=== PATIENT | male | born 1955 | race Caucasian/White ===

== ENCOUNTER 2018-10-22 16:28 | Emergency (ER) | payer OTHER ==
[2018-10-22] MEDS ORDERED: Metoprolol Tartrate 5 MG/5 ML VIAL ONE (17:03)
[2018-10-22] MEDS ORDERED: Carvedilol 3.125 MG TAB PO SCH (18:15)
== END 2018-10-22 18:39 | disposition home or self-care (01) ==
LOC: ERS 16:28
DX: I48.91 Unspecified atrial fibrillation (principal); F17.210 Nicotine dependence, cigarettes, uncomplicated
CPT/HCPCS: 93005; 96374

== ENCOUNTER 2018-10-24 04:58 | Inpatient (IN) | payer OTHER ==
[2018-10-24] MEDS ORDERED: Diltiazem 125 MG/25 ML ONE (05:08)
[2018-10-24 05:40] LABS: #Basophils 0.1 thou/uL (0.0-0.2); #Eosinphils 0.4 thou/uL (0.0-0.7); #Lymphocytes 2.1 thou/uL (1.20-3.40); #Monocytes 0.7 thou/uL (0.11-0.59); #Neutrophils 6.9 thou/uL (1.40-6.50); %Basophils 0.5 % (0.0-1.0); %Eosinophils 3.5 % (0.0-10.0); %Monocytes 6.9 % (0.0-10.0); %Neutrophils 68.1 % (42.0-75.0); Hemoglobin 13.4 g/dL (14.0-18.0); Mean Corpuscular Hemoglobin 34.9 pg (27.0-31.0); Mean Corpuscular Volume 96.9 fL (78.0-98.0); Mean Platelet Volume 6.8 fL (7.4-10.4); Platelet Count 309 thou/uL (130-400); RBC Distribution Width 12.2 % (11.5-14.5); Red Blood Cell (RBC) Count 3.84 mill/uL (4.70-6.10); White Blood Cell (WBC) Count 10.1 thou/uL (4.8-10.8)
[2018-10-24 05:59] LABS: ALT (SGPT) 14 U/L (8-55); AST (SGOT) 24 U/L (5-34); Albumin 4.5 g/dL (3.4-4.8); Alkaline Phosphatase 94 U/L (40-150); Anion Gap 15 mmol/L (10-20); BUN (Urea Nitrogen) 17 mg/dL (8.4-25.7); Bilirubin, Total 1.2 mg/dL (0.2-1.2); Calc. Creatinine Clearance 0 mL/min (70-130); Calcium 10.1 mg/dL (7.8-10.44); Carbon Dioxide 21 mmol/L (23-31); Chloride 94 mmol/L (98-107); Estimated GFR-MDRD 45; Globulin 3.2 g/dL (2.4-3.5); Glucose 113 mg/dL (80-115); Potassium 4.5 mmol/L (3.5-5.1); Protein, Total 7.7 g/dL (5.8-8.1); Sodium 125 mmol/L (136-145)
--- NOTE | 2018-10-24 08:18 | RAD ---
SINGLE VIEW OF THE CHEST: COMPARISON: 10/22/2018. HISTORY: Dyspnea. FINDINGS: A single view of the chest shows a normal-size cardiomediastinal silhouette. There may be a small le ft pleural effusion. No consolidation is seen. There are bilateral rib fractures which appear remot e. IMPRESSION: Small left pleural effusion. POS: CET
[2018-10-24 09:13] LABS: Troponin I Less than 0.010 ng/mL (< 0.028)
[2018-10-24] MEDS ORDERED: Digoxin 0.5 MG/2 ML AMP SLOW IVP SCH ×3 (09:30→17:45)
[2018-10-24] MEDS ORDERED: Acetaminophen 325 MG TAB PO PRN (09:30)
[2018-10-24] MEDS ORDERED: hydrALAZINE 20 MG/ML VIAL SLOW IVP PRN (09:30)
[2018-10-24] MEDS: Sodium Chloride 0.9% 1,000 ML IV SCH (10:20)
[2018-10-24 12:02] LABS: Troponin I 0.026 ng/mL (< 0.028)
--- NOTE | 2018-10-24 14:59 | HP ---
The patient says he is currently in between doctors. He was seeing Dr. Woodson in [place], but says a lady doctor took over. CHIEF COMPLAINT: "My breathing." HISTORY OF PRESENT ILLNESS: Mr. Evans is a pleasant 63-year-old gentleman, who says he has a diagnosis of ALS, which was diagnosed about 10 years ago in [place]. He had been living in a nursing facility, but he says he checked himself out of there. He apparently had been there convalescing from endocarditis, which had been diagnosed a few years back. He says that he had been doing okay at home. He says he lives solo and free at home and says that he has noticed in the last few months that he has been getting more and more short of breath. He notes it mainly when he is trying to do things. He gets around in his home with a wheelchair and has noticed it with this. He also notes that his heart has been racing and he has been having palpitations. He says it occurs constantly. He says it has been over the last 6 months and during this time, he also feels like there is pressure on his chest like somebody is sitting on him. He also notes that he feels dizzy and lightheaded during this time and as a result, he came to the ER for evaluation. While in the ER, he was found to be in atrial fibrillation with rapid ventricular response. He was given a dose of Cardizem as well as placed on a Cardizem drip. His heart rate did drop as well as his blood pressure in the ER and he is being admitted for further evaluation. The patient is not the best historian and his ideas are somewhat all over the place, but from what I can gather, his main symptoms are the shortness of breath and palpitations as well as chest pain. He does not really complain of any other symptoms. REVIEW OF SYSTEMS: CONSTITUTIONAL: There has been no mention of any fevers, chills, or night sweats. No weight loss. HEENT: He denies any headache, but he has had some feeling dizzy and lightheaded typically when he gets the shortness of breath. There has been no mention of any sore throat or rhinorrhea. NECK: No neck pain. No adenopathy. PULMONARY: He complains of occasional cough. There is no wheezing. No hemoptysis. CARDIOVASCULAR: As the history of present illness. GASTROINTESTINAL: He denies any abdominal pain. No nausea. No vomiting. No change in bowels. GENITOURINARY: He says he has no difficulty urinating. No polyuria. No dysuria. No hematuria. MUSCULOSKELETAL: No mention of any muscle pains, weakness, or joint pains. NEUROLOGIC: No focal weakness or numbness. No seizures. However, he says he has been diagnosed with ALS and says he knows his legs are not always going to be "with him" and he does get around with a wheelchair. PSYCHIATRIC: No symptoms of anxiety or depression. PAST MEDICAL HISTORY: ALS diagnosed in [facility] about 10 years ago. He does not really know much of the details of that. He also has a history of endocarditis. PAST SURGICAL HISTORY: He has had surgery on his right arm and his neck and this was following a wheelchair accident. ALLERGIES: TO IODINE. SOCIAL HISTORY: He lives at home alone. He gets around with a wheelchair. He has a daughter, Aruna, who is his medical power of analytics architect and it is mentioned that he does have a history of tobacco abuse as well as he drinks alcohol. He does not want to be resuscitated. He is a DNR. FAMILY HISTORY: No history of any heritable diseases. CURRENT MEDICATIONS: 1. Carvedilol 3.125 mg twice daily. 2. Multivitamin once a day. 3. Losartan/hydrochlorothiazide 50/12.5 once daily. 4. Loperamide 2 mg daily. 5. Doxycycline 100 mg twice a day. 6. Bupropion 150 mg extended release daily. 7. Aspirin 81 mg a day. PHYSICAL EXAMINATION: GENERAL: He is alert and oriented. He is in no acute distress. He is a bit disheveled in appearance and he does tend to get agitated easily. VITAL SIGNS: Blood pressure was 164/118, heart rate is averaging 110 to 120, respiratory rate is 20, and he is afebrile. HEENT: Pupils are equal, round, and reactive to light. Extraocular muscles are intact. His sclerae are anicteric. Throat, there is no erythema. He does have very poor dentition. NECK: There are no adenopathies. There are no bruits. LUNGS: Clear to auscultation. There are no wheezing, no rales, no rhonchi. CARDIOVASCULAR: The rhythm is irregular. There was no evidence of any murmur. S1 and S2 are normal. There are no clicks, no rubs. ABDOMEN: Soft. It is nontender and nondistended. Positive for bowel sounds. There is no rebound. No guarding. No organomegaly. EXTREMITIES: He does have some atrophy in his calf muscles, but there is no edema. There are no joint effusions. NEUROLOGIC: His cranial nerves are intact. His muscle strength was 5/5 in both his upper and lower extremities. SKIN AND INTEGUMENT: He had some excoriations on his feet, but otherwise no other skin lesions. LAB RESULTS: The white blood cell count is 10.1, hemoglobin 13.4, hematocrit is 37.2, and platelet count is 309. Sodium 125, potassium 4.5, chloride is 94, CO2 is 21, BUN of 17, creatinine 1.55, and glucose is 113. TSH was 3.15. IMAGING DATA: He had a chest x-ray, which by my reading, there is no evidence of any cardiomegaly. He had some blunting of the left costophrenic angle, possibly suggesting a pleural effusion and it looked like there was some fullness in the right base as well and then possible infiltrate. EKG showed atrial fib as well as atrial flutter with heart rates in the 130s. There was no ST wave changes. This is also by my reading. ASSESSMENT AND PLAN: 1. Acute respiratory failure. This is likely as a result of the atrial fibrillation with rapid ventricular response. For this, we will go ahead and admit him to the telemetry since he had a fairly abrupt reaction to Cardizem. We will go ahead and give him a dose of IV digoxin and monitor his rate. Right now, he seems to be tolerating the faster heart rates at this time. We will go ahead and consult Cardiology for further recommendations as well as get an echo cardiogram. 2. The patient has hyponatremia. This appears to be relatively chronic. I suspect it could be due to volume depletion. We will go ahead and place him on a normal saline and we will also get urine and serum osmolalities as well as a urine sodium to help us distinguish the type of hyponatremia he has. 3. Acute versus chronic kidney disease. We will need to monitor the trend and see if he responds to hydration. 4. Possible urinary retention. If he in fact does have amyotrophic lateral sclerosis, it could be related to this. He has been bladder scanned and found to have an 800 mL of urine. We would like to place a Gerard catheter at least in and out catheterization. Right now, he is a bit agitated and has been refusing this even after the nurse as well as myself tried to convince him of this, telling him the risk of renal failure, not really sure if he completely comprehend the risks. We will continue to try to convince him to do this through the hospital stay. Hopefully, once he is more settled in, he will allow us to place a catheter. Otherwise, the patient will be placed on gastrointestinal prophylaxis. He will likely need Lovenox as well. However, given his risk for falls and his relative noncompliance, I will go ahead and hold off on this until he is evaluated by Cardiology. Job ID: [id number]
--- NOTE | 2018-10-24 15:01 | PDOC.PALCO ---
Palliative Care Consult - Consult Details Requesting Physician: Dr Hitchcock Reason for Consult: advance directives assistance, coping issues Family Members Present: None - Pertinent HPI 63 year old male who presented to the emergency department with shortness of breath after calling EMS. EMS assessed Mr Evans , administered duobeb x2 and transported to the emergency room. Patient had was also seen in the Emergency room two days prior for shortness of breath. Secondary to hyponatremia , atrial fib with RVR patient is admitted for further evaluation, consult to Palliative Care by Dr Hitchcock for assistance with advance directives and coping issues. - Pertinent PMH ALS, Chronic Alcohol abuse, Hypertension, Endocarditis, Heart Failure, COPD - Social History Smoking Status: Current every day smoker Smoking: cigarettes Alcohol Use: daily Drug Use History: none - Medications MAR Reviewed: Yes - Allergies Allergies/Adverse Reactions: Allergies Allergy/AdvReac Type Severity Reaction Status Date / Time iodine Allergy Verified 10/24/18 09:00 - Subjective Poor hygiene, emaciated, chronically ill appearing. Push of speech with conversation. States if we would find out the previous medication he was on for his heart "he would be better". Discussed heart disease and ALS. Patient consistently refocused conversation back to his medication that he was on. No recall of previous medication, no recall of who prescribed just that it was cardiology. ROS: Pain, non specific, shortness of breath, cough, "tired". Review of all other systems negative at this time. - Objective Vital Signs: Vital Signs - Most Recent Temp Pulse Resp BP Pulse Ox 97.7 F 109 H 20 142/96 H 100 10/24/18 11:22 10/24/18 11:22 10/24/18 11:22 10/24/18 11:22 10/24/18 11:22 Palliative Performance Scale: 40 - Physical Exam Deviation from normal: aggitated, HEENT: moist MMs, EOMI Deviation from normal: labored respirations, mild difuse wheezing more pronounced on expiration Cardiovascular: irregular Gastrointestinal: positive bowel sounds Musculoskeletal: no edema Neurological: normal sensation Deviation from normal: aggitated Deviation from normal: Fair turgor, brusing in various stages of healing. Thin fragile skin - Problem List (1) Palliative care encounter Code(s): Z51.5 - ENCOUNTER FOR PALLIATIVE CARE Current Visit: Yes Status: Acute (2) ALS (amyotrophic lateral sclerosis) Code(s): G12.21 - AMYOTROPHIC LATERAL SCLEROSIS Current Visit: No Status: Chronic (3) Chronic alcoholism Code(s): F10.20 - ALCOHOL DEPENDENCE, UNCOMPLICATED Current Visit: No Status : Chronic (4) Tobacco use Code(s): Z72.0 - TOBACCO USE Current Visit: No Status: Chronic - Plan/Recommendations Plan:* Ben did sign his DNAR but signature illegible. Confirmed with patient that he wants no resuscitative measures. Did not want to discuss MPOA. Extensive therapeutic listening during patient encounter, communicated with Scottie patient RN. *Follow up on MPOA *Continue discussion to identify if there are other coping strategies that patient would be willing to use to lessen the alcohol consumption. *Continue to educate patient that secondary to disease progression he will not have heart function as he did years ago [60] minutes spent on this encounter with >50% of the time in counseling and coordination of care. Thank you for this very appropriate consult.
[2018-10-24] MEDS ORDERED: Carvedilol 3.125 MG TAB PO SCH (21:00)
[2018-10-24] MEDS: Famotidine 20 MG TAB PO SCH (21:46)
--- NOTE | 2018-10-25 00:12 | CON ---
DATE OF CONSULTATION: HISTORY OF PRESENT ILLNESS: Jose Evans is a pleasant 63-year-old white male, who has been seen and evaluated by Dr. Whitaker in the past. Ten years ago, he was diagnosed with amyotrophic lateral sclerosis. 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 He was discharged to be treated with IV vancomycin and then readmitted 1 month later with increasing dyspnea. It was felt that he had acute-on- chronic systolic and diastolic heart failure. It is of note that on discharge from that admission that he was on digoxin 0.125 daily, and furosemide 20 mg daily, which he is no longer taking. He states that his current doctor felt he did not need that. He is now admitted with increased shortness of breath. He denies any leg edema. He also complains of tightness in his chest and at times can feel his heart beating very rapidly. In the emergency room, he was given intravenous Cardizem and placed on Cardizem drip. 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 PAST SURGICAL HISTORY: Right arm and neck surgery. MEDICATIONS: 1. Carvedilol 3.125 b.i.d. 2. Multivitamin 1 daily. 3. Losartan/hydrochlorothiazide 50/12.5 daily. 4. Loperamide 2 mg daily. 5. Doxycycline 100 mg b.i.d. 6. Aspirin 81 daily. 7. Bupropion 150 mg daily. ALLERGIES: IODINE. SOCIAL HISTORY: He continues to smoke. He wished to be a DNR. He does drink. PHYSICAL EXAMINATION: VITAL SIGNS: Blood pressure 152/110, pulse of 110. HEENT: PERRL. NECK: Supple. CHEST: Clear. CARDIAC: S1 and S2 normal without any S3, S4 or murmurs. ABDOMEN: Normal bowel sounds without tenderness. EXTREMITIES: Revealed no clubbing, cyanosis, or edema. NEUROLOGICAL: Grossly intact. The patient has rapid repetitive eye movements and generalized weakness. IMAGING: EKG reveals atrial fibrillation with rapid ventricular response at 124 per minute with incomplete right bundle-branch block. Nonspecific ST-T wave changes. LABORATORY DATA: Sodium 125, potassium 4.5, chloride 94, carbon dioxide 21, BUN 17, creatinine 1.55. TSH is normal. Troponin I is normal x4. Hemoglobin 13.4, hematocrit 37.2, white count 56034, and platelets 309,000. D-dimer less than 0.27. Alcohol less than 10. IMPRESSION: 1. Atrial fibrillation with rapid ventricular response. He was on digoxin previously for rate control. However, this has been stopped. Thus far, he has received 2 doses of digoxin 0.25 intravenously. 2. Elevated hypertension. 3. History of methicillin-resistant Staphylococcus aureus mitral valve endocarditis in February 2017. 4. Smoker. 5. Alcohol use. 6. Renal insufficiency. 7. Hyponatremia. 8. Urinary retention. PLAN: Due to his risk of falls, he is a poor candidate for anticoagulation. Another digoxin 0.25 IV will be given and he will be started on 0.125 q.a.m. Echocardiogram will be repeated. Dr. Whitaker will see the patient in the morning. Job ID: [id number]
[2018-10-25] MEDS: Sodium Chloride 0.9% 1,000 ML IV SCH ×2 (00:30→17:13)
[2018-10-25 05:43] LABS: #Eosinphils 0.1 thou/uL (0.0-0.7); #Lymphocytes 1.5 thou/uL (1.20-3.40); #Monocytes 0.7 thou/uL (0.11-0.59); #Neutrophils 6.3 thou/uL (1.40-6.50); %Basophils 0.1 % (0.0-1.0); %Eosinophils 1.4 % (0.0-10.0); %Lymphocytes 17.6 % (21.0-51.0); %Neutrophils 72.9 % (42.0-75.0); Hemoglobin 12.1 g/dL (14.0-18.0); Mean Corpuscular HGB CONC 34.2 g/dL (32.0-36.0); Mean Corpuscular Hemoglobin 33.9 pg (27.0-31.0); Mean Corpuscular Volume 99.2 fL (78.0-98.0); Mean Platelet Volume 6.4 fL (7.4-10.4); Platelet Count 248 thou/uL (130-400); RBC Distribution Width 12.3 % (11.5-14.5); Red Blood Cell (RBC) Count 3.57 mill/uL (4.70-6.10); White Blood Cell (WBC) Count 8.6 thou/uL (4.8-10.8)
[2018-10-25 06:02] LABS: Anion Gap 15 mmol/L (10-20); BUN (Urea Nitrogen) 16 mg/dL (8.4-25.7); Calc. Creatinine Clearance 50 mL/min (70-130); Calcium 9.7 mg/dL (7.8-10.44); Carbon Dioxide 21 mmol/L (23-31); Chloride 100 mmol/L (98-107); Estimated GFR-MDRD 54; Glucose 98 mg/dL (80-115); Potassium 4.6 mmol/L (3.5-5.1); Sodium 131 mmol/L (136-145)
--- NOTE | 2018-10-25 09:36 | PRG ---
DATE OF SERVICE: 10/25/2018 SUBJECTIVE: Mr. Evans was recently admitted for atrial fibrillation. He has a history of chronic atrial fibrillation. He has not been seen or evaluated by me or another assistant professor of surgery over the last 2 years. He states he has run out of his medications. He does have a previous history of questionable endocarditis. Today, his heart rate appears stable. He is currently on carvedilol in addition to digoxin. Heart rate has been in the 80s to 90s. OBJECTIVE: VITAL SIGNS: Heart rate 97, blood pressure 137/96, temp 98.1. GENERAL: He appears disheveled. Poor dentition present. NEUROLOGIC: The patient is alert and oriented x3 with no focal neurologic deficits. HEENT: Sclerae without icterus. Mouth has moist mucous membranes with normal pallor. NECK: No JVD. Carotid upstroke brisk. No bruits bilaterally. LUNGS: Clear to auscultation with unlabored respirations. BACK: No scoliosis or kyphosis. CARDIAC: Irregularly irregular. ABDOMEN: Soft, nontender, nondistended. No peritoneal signs present. No hepatosplenomegaly. No abnormal striae. EXTREMITIES: 2+ femoral and 2+ dorsalis pedis pulses. No cyanosis, clubbing, or edema. SKIN: No gross abnormalities. PERTINENT LABORATORY DATA: Hemoglobin 12.1, creatinine 1.34 with a GFR 54. Troponin negative. IMPRESSION: 1. Atrial fibrillation with rapid ventricular response. 2. Previous history of endocarditis. 3. Amyotrophic lateral sclerosis. RECOMMENDATIONS: 1. Continue rate control. We will increase carvedilol to 6.25 b.i.d. 2. Continue digoxin. 3. It was documented that Mr. Evans has not been a good candidate due to risk of falls for anticoagulation therapy. 4. We will review his echo. 5. Once he is rate controlled, will be okay from my standpoint to discharge home with close outpatient followup. Job ID: [id number]
[2018-10-25] MEDS: Folic Acid 1 MG TAB PO SCH (09:58)
[2018-10-25] MEDS: Famotidine 20 MG TAB PO SCH ×2 (09:59→20:10)
[2018-10-25] MEDS: Carvedilol 6.25 MG TAB PO SCH ×2 (09:59→20:09)
[2018-10-25] MEDS: Multivit, Therapeutic 1 TAB PO SCH (09:59)
[2018-10-25] MEDS: Thiamine 100 MG TAB PO SCH (09:59)
[2018-10-25] MEDS: Aspirin Chewable 81 MG TAB PO SCH (10:00)
[2018-10-25] MEDS: Digoxin 0.125 MG TAB PO SCH (10:00)
[2018-10-25 12:02] VITALS: BMI 19.1
--- NOTE | 2018-10-25 12:58 | PQF ---
DATE: 10-25-18 ATTN: DR. BERNIE JOLLEY Please exercise your independent, professional judgment in responding to the clarification form. Clinical indicators are provided on the bottom of this form for your review Please check appropriate box(s): [ ] Acute Renal Failure (ARF) / Acute Kidney Injury (DAMIEN) [ ] Acute on Chronic Renal Failure please specify Stage of CKD (see below) [ X ] CKD without ARF/DAMIEN please specify Stage of CKD 3 [ ] Other diagnosis [ ] Unable to determine In addition, please specify: Present on Admission (POA): [X ] Yes [ ] No [ ] Unable to determine National Kidney Foundation Guidelines for CKD Staging Stage I Kidney damage with normal or increased GFR GFR > 90 Stage II Kidney damage with mildly decreased GFR GFR 60-89 Stage III Kidney damage with moderately decreased GFR GFR 30-59 Stage IV Kidney damage with severely decreased GFR GFR 16-29 Stage V Kidney failure GFR<15 ESRD End Stage Renal Disease On dialysis Acute Renal Failure/Acute Kidney Failure defined as: Increases in SCr by (>) 0.3 mg/dl within 48 hours OR- Increases in SCr by (>) 1.5 times baseline, known or presumed to have occurred within the prior 7 days OR- Urine volume < 0.5 ml/kg/hour for 6 hours (KDIGO supplement 2012 for RIFLE/RYLIE criteria) For continuity of documentation, please document condition throughout progress notes and discharge summary. Thank You. CLINICAL INDICATORS - SIGNS / SYMPTOMS / LABS: GFR: 10-24-18: 45 10-25-18: 54 CREATININE: 10-24-18: 1.55 10-25-18: 1.34 BUN: 10-24-18: 17 10-25-18: 16 H&P: ACUTE VS CHRONIC KIDNEY DISEASE. WE WILL MONITOR THE TREND AND SEE IF HER RESPONDS TO HYDRATION CONSULT NOTE DR. PARKER 10-24-18: RENAL INSUFFICIENCY RISK FACTORS: H&P: ACUTE VS CHRONIC KIDNEY DISEASE. WE WILL MONITOR THE TREND AND SEE IF HER RESPONDS TO HYDRATION H&P: ACUTE RESPIRATORY FAILURE, HYPONATREMIA, HX DRINKING, SMOKER TREATMENTS: H&P: ACUTE VS CHRONIC KIDNEY DISEASE. WE WILL MONITOR THE TREND AND SEE IF HER RESPONDS TO HYDRATION ER: NS IVF (This form is maintained as a part of the permanent medical record) 2014 [employer]. All Rights Reserved JOHN [email or web address] Office: [phone] [facility]
--- NOTE | 2018-10-25 15:48 | PDOC.HOSPP ---
- Subjective Encounter Date: 10/25/18 Encounter Time: 13:30 Subjective: Mr. Evans was seen today in follow-up of CHF exacberation. He is breathing better. He denies chest pain. - Objective Vital Signs & Weight: Vital Signs (12 hours) Temp Pulse Resp BP BP Pulse Ox 10/25/18 10:00 119 H 10/25/18 09:59 133/83 10/25/18 09:50 98 10/25/18 08:00 119 H 20 133/83 98 10/25/18 03:58 98.1 F 94 18 137/96 H 97 Weight Admit Weight 140 lb Weight 141 lb 1.533 oz I&O: 10/24/18 10/25/18 10/26/18 06:59 06:59 06:59 Intake Total 2752 Output Total 945 Balance 1807 Result Diagrams: 10/25/18 05:18 10/25/18 05:18 ROS - Medication Medications: Active Medications Generic Name Dose Route Start Last Admin Trade Name Scottq PRN Reason Stop Dose Admin Aspirin 81 mg 10/25/18 09:00 10/25/18 10:00 Aspirin Chewable PO 81 mg DAILY NOLA Administration Carvedilol 6.25 mg 10/25/18 09:00 10/25/18 09:59 Coreg PO 6.25 mg BID NOLA Administration Digoxin 0.125 mg 10/25/18 09:00 10/25/18 10:00 Lanoxin PO 0.125 mg DAILY NOLA Administration Famotidine 20 mg 10/24/18 21:00 10/25/18 09:59 Pepcid PO 20 mg BID NOLA Administration Folic Acid 1 mg 10/25/18 09:00 10/25/18 09:58 Folvite PO 1 mg DAILY NOLA Administration Multivitamins 1 tab 10/25/18 09:00 10/25/18 09:59 Theragran PO 1 tab DAILY NOLA Administration Thiamine HCl 100 mg 10/25/18 09:00 10/25/18 09:59 Thiamine PO 100 mg DAILY NOLA Administration - Exam Eye: PERRL Neck: supple, symmetric, no JVD, no thyromegaly, no lymphadenopathy Heart: no murmur, no gallops, no rubs, normal peripheral pulses, irregular ( heart rat variable) Respiratory: CTAB, no wheezes, no rales, no ronchi Gastrointestinal: soft, non-tender, non-distended, normal bowel sounds, no palpable masses, no hepatomegaly Extremities: no cyanosis, no clubbing, no edema Hosp A/P (1) Atrial fibrillation with RVR Code(s): I48.91 - UNSPECIFIED ATRIAL FIBRILLATION Status: Acute (2) ALS (amyotrophic lateral sclerosis) Code(s): G12.21 - AMYOTROPHIC LATERAL SCLEROSIS Status: Chronic (3) Ikqjv-ea-jalmtch kidney injury Code(s): N17.9 - ACUTE KIDNEY FAILURE, UNSPECIFIED; N18.9 - CHRONIC KIDNEY DISEASE, UNSPECIFIED Status: Acute (4) Urinary retention Code(s): R33.9 - RETENTION OF URINE, UNSPECIFIED Status: Acute - Plan * Atrial fibrillation- his heart rate is still a bit variable- continue Digoxin , and await further recommendations from Cardiology * Acute on chronic kidney disease- renal function is a bit better, i suspect he is close to his baseline- will discontinue IV fluids, as to avoid volume overload * Hyponatremia- improved with hydration * Urinary retention- likely due to ALS- we have recommended in and out cath- he refuses, the risk of infection, and renal failure leading to complete kidney failure were discussed and he continues to refuse
[2018-10-26 05:57] LABS: Anion Gap 13 mmol/L (10-20); BUN (Urea Nitrogen) 17 mg/dL (8.4-25.7); Calc. Creatinine Clearance 53 mL/min (70-130); Calcium 9.5 mg/dL (7.8-10.44); Carbon Dioxide 21 mmol/L (23-31); Chloride 99 mmol/L (98-107); Estimated GFR-MDRD 57; Glucose 95 mg/dL (80-115); Potassium 3.9 mmol/L (3.5-5.1); Sodium 129 mmol/L (136-145)
[2018-10-26] MEDS: Digoxin 0.125 MG TAB PO SCH (08:40)
[2018-10-26] MEDS: Famotidine 20 MG TAB PO SCH ×2 (08:40→20:22)
[2018-10-26] MEDS: Thiamine 100 MG TAB PO SCH (08:40)
[2018-10-26] MEDS: Folic Acid 1 MG TAB PO SCH (08:41)
[2018-10-26] MEDS: Aspirin Chewable 81 MG TAB PO SCH (08:41)
[2018-10-26] MEDS: Multivit, Therapeutic 1 TAB PO SCH (08:41)
[2018-10-26] MEDS: Carvedilol 6.25 MG TAB PO SCH ×2 (08:41→20:22)
--- NOTE | 2018-10-26 16:06 | PDOC.CTH ---
Cardiology Progress Note - Subjective No new issues. - Objective Vital Signs Temp Pulse Resp BP BP BP Pulse Ox 10/26/18 15:06 98.1 F 82 18 122/84 95 10/26/18 11:22 98.1 F 98 18 144/99 H 95 10/26/18 08:41 133/83 10/26/18 08:40 97.6 F 120 H 20 145/85 H 100 Admit Weight 140 lb Weight 141 lb 1.533 oz 10/25/18 10/26/18 10/27/18 06:59 06:59 06:59 Intake Total 2752 1280 Output Total 945 Balance 1807 1280 - Physical Examination General/Neuro: alert & oriented x3, NAD Neck: no JVD present Lungs: CTA, unlabored respirations Heart: other: (irreg irreg) Abdomen: NT/ND Extremities: other: (no edema.) - Telemetry Telemetry Rhythm: Afib HR 120's - Labs Result Diagrams: 10/25/18 05:18 10/26/18 05:10 Troponin/CKMB Troponin I 0.026 ng/mL (< 0.028) 10/24/18 11:18 - Assessment/Plan 1. Afib RVR 2. Hx of endocarditis 3. Amyotrophic Lateral Sclerosis. PLAN: - Rate control. Will increase coreg. - Continue current digoxin dose. - Poor candidate for anticoagulation due to frequent falls and non compliance.
--- NOTE | 2018-10-26 18:03 | PDOC.HOSPP ---
- Subjective Encounter Date: 10/26/18 Encounter Time: 10:20 Subjective: Mr. Evans was seen today in follow-up of atrial fibrillation. He does not have any complaints. - Objective Vital Signs & Weight: Vital Signs (12 hours) Temp Pulse Resp BP BP BP Pulse Ox 10/26/18 15:06 98.1 F 82 18 122/84 95 10/26/18 11:22 98.1 F 98 18 144/99 H 95 10/26/18 08:41 133/83 10/26/18 08:40 97.6 F 120 H 20 145/85 H 100 Weight Admit Weight 140 lb Weight 141 lb 1.533 oz I&O: 10/25/18 10/26/18 10/27/18 06:59 06:59 06:59 Intake Total 2752 1280 Output Total 945 Balance 1807 1280 Result Diagrams: 10/25/18 05:18 10/26/18 05:10 ROS - Medication Medications: Active Medications Generic Name Dose Route Start Last Admin Trade Name Deana PRN Reason Stop Dose Admin Aspirin 81 mg 10/25/18 09:00 10/26/18 08:41 Aspirin Chewable PO 81 mg DAILY NOLA Administration Digoxin 0.125 mg 10/25/18 09:00 10/26/18 08:40 Lanoxin PO 0.125 mg DAILY NOLA Administration Famotidine 20 mg 10/24/18 21:00 10/26/18 08:40 Pepcid PO 20 mg BID NOLA Administration Folic Acid 1 mg 10/25/18 09:00 10/26/18 08:41 Folvite PO 1 mg DAILY NOLA Administration Multivitamins 1 tab 10/25/18 09:00 10/26/18 08:41 Theragran PO 1 tab DAILY NOLA Administration Thiamine HCl 100 mg 10/25/18 09:00 10/26/18 08:40 Thiamine PO 100 mg DAILY NOLA Administration - Exam Eye: PERRL, anicteric sclera Heart: no murmur, no gallops, no rubs, irregular (tachycardic) Respiratory: CTAB, no wheezes, no rales, no ronchi, normal chest expansion Gastrointestinal: soft, non-tender, non-distended, normal bowel sounds, no palpable masses, no hepatomegaly Extremities: no cyanosis, no clubbing, no edema Hosp A/P (1) Atrial fibrillation with RVR Code(s): I48.91 - UNSPECIFIED ATRIAL FIBRILLATION Status: Acute (2) ALS (amyotrophic lateral sclerosis) Code(s): G12.21 - AMYOTROPHIC LATERAL SCLEROSIS Status: Chronic (3) [id number] kidney injury Code(s): N17.9 - ACUTE KIDNEY FAILURE, UNSPECIFIED; N18.9 - CHRONIC KIDNEY DISEASE, UNSPECIFIED Status: Acute (4) Urinary retention Code(s): R33.9 - RETENTION OF URINE, UNSPECIFIED Status: Acute - Plan * Atrial fibrillation- his heart rate is still elevated- discussed with Dr. Ramsey- his beta-kelli dose has been increased * Acute on chronic kidney disease- renal function has improved some with diureses ( likely cardiorenal mediated) * Hyponatremia- variable with diurese- will continue to monitor * Urinary retention- likely due to ALS- we have recommended in and out cath- he refuses
[2018-10-27 05:57] LABS: Anion Gap 14 mmol/L (10-20); BUN (Urea Nitrogen) 17 mg/dL (8.4-25.7); Calc. Creatinine Clearance 48 mL/min (70-130); Calcium 9.5 mg/dL (7.8-10.44); Carbon Dioxide 22 mmol/L (23-31); Chloride 98 mmol/L (98-107); Estimated GFR-MDRD 54; Glucose 82 mg/dL (80-115); Potassium 3.9 mmol/L (3.5-5.1); Sodium 130 mmol/L (136-145)
[2018-10-27] MEDS: Digoxin 0.125 MG TAB PO SCH (09:18)
[2018-10-27] MEDS: Carvedilol 6.25 MG TAB PO SCH (09:19)
[2018-10-27] MEDS: Multivit, Therapeutic 1 TAB PO SCH (09:19)
[2018-10-27] MEDS: Famotidine 20 MG TAB PO SCH (09:19)
[2018-10-27] MEDS: Aspirin Chewable 81 MG TAB PO SCH (09:19)
[2018-10-27] MEDS: Folic Acid 1 MG TAB PO SCH (09:19)
[2018-10-27] MEDS: Thiamine 100 MG TAB PO SCH (09:22)
[2018-10-27 16:32] VITALS: BP 152/91; TEMP 97.5
--- NOTE | 2018-10-27 17:19 | PDOC.HOSPP ---
- Subjective Encounter Date: 10/27/18 Encounter Time: 17:20 Subjective: f/u for A-fib RVR on Coreg/Digoxin and variable rate control. - Objective Vital Signs & Weight: Vital Signs (12 hours) Temp Pulse Resp BP BP Pulse Ox 10/27/18 16:00 97.5 F L 86 18 152/91 H 99 10/27/18 12:00 97.8 F 98 18 148/80 H 96 10/27/18 09:18 137 H 10/27/18 08:00 98.2 F 124 H 17 160/85 H 98 Weight Admit Weight 140 lb Weight 132 lb 4.8 oz I&O: 10/26/18 10/27/18 10/28/18 06:59 06:59 06:59 Intake Total 1280 970 Output Total 1999 Balance 1280 -1030 Result Diagrams: 10/25/18 05:18 10/27/18 05:04 Radiology Reviewed by me: Yes (Echo - EF 35-40%, mod-severe MR/TR, old mitral vegetation) EKG Reviewed by me: Yes (Tele - ) ROS - Medication Medications: Active Medications Generic Name Dose Route Start Last Admin Trade Name Freq PRN Reason Stop Dose Admin Aspirin 81 mg 10/25/18 09:00 10/27/18 09:19 Aspirin Chewable PO 81 mg DAILY NOLA Administration Carvedilol 12.5 mg 10/26/18 21:00 10/27/18 09:19 Coreg PO 12.5 mg BID NOLA Administration Digoxin 0.125 mg 10/25/18 09:00 10/27/18 09:18 Lanoxin PO 0.125 mg DAILY NOLA Administration Famotidine 20 mg 10/24/18 21:00 10/27/18 09:19 Pepcid PO 20 mg BID NOLA Administration Folic Acid 1 mg 10/25/18 09:00 10/27/18 09:19 Folvite PO 1 mg DAILY NOLA Administration Multivitamins 1 tab 10/25/18 09:00 10/27/18 09:19 Theragran PO 1 tab DAILY NOLA Administration Thiamine HCl 100 mg 10/25/18 09:00 10/27/18 09:22 Thiamine PO 100 mg DAILY NOLA Administration - Exam NAD, awake alert Eye: PERRL, anicteric sclera ENT: normocephalic atraumatic, no oropharyngeal lesions Neck: supple, symmetric, no JVD, no thyromegaly, no lymphadenopathy Heart: no murmur, no gallops, no rubs, irregular Respiratory: CTAB, no wheezes, no rales, no ronchi, normal chest expansion, no tachypnea Gastrointestinal: soft, non-tender, non-distended, normal bowel sounds, no palpable masses Extremities: no cyanosis, no clubbing, no edema Skin: normal turgor, no lesions Neurological: CN's grossly intact, no new deficit Musculoskeletal: generalized weakness
--- NOTE | 2018-10-27 17:26 | PDOC.CTH ---
Cardiology Progress Note - Subjective Better rate controlled today. He swears at the nursing staff and has made some racist comments. He was pleasant with me on my interview. He denies angina. - Objective Vital Signs Temp Pulse Resp BP BP Pulse Ox 10/27/18 16:00 97.5 F L 86 18 152/91 H 99 10/27/18 12:00 97.8 F 98 18 148/80 H 96 10/27/18 09:18 137 H 10/27/18 08:00 98.2 F 124 H 17 160/85 H 98 Admit Weight 140 lb Weight 132 lb 4.8 oz 10/26/18 10/27/18 10/28/18 06:59 06:59 06:59 Intake Total 1280 970 Output Total 1999 Balance 1280 -1030 - Physical Examination General/Neuro: alert & oriented x3, NAD Neck: no JVD present Lungs: unlabored respirations Heart: other: (Irreg irreg. ) Abdomen: NT/ND Extremities: other: (no edema.) - Telemetry Telemetry Rhythm: NSR - Labs Result Diagrams: 10/25/18 05:18 10/27/18 05:04 Troponin/CKMB Troponin I 0.026 ng/mL (< 0.028) 10/24/18 11:18 - Assessment/Plan 1. Afib RVR, rate controlled. 2. Hx of endocarditis 3. Amyotrophic Lateral Sclerosis. PLAN: - Rate control on current meds. - Continue digoxin - Poor candidate for anticoagulation due to frequent falls and non compliance. - He states he wants to leave as soon as possible, he does not like to be in the hospital. - May discharge from cardiac perspective at any time. - He refuses any type of rehab or PT at this point.
[2018-10-27] MEDS ORDERED: Doxycycline 100 MG CAP PO SCH (21:00)
--- NOTE | 2018-10-28 04:10 | DIS ---
DATE OF ADMISSION: 10/24/2018 DATE OF DISCHARGE: 10/27/2018 DISCHARGE DIAGNOSES: 1. Atrial fibrillation with variable rate control. 2. Acute kidney injury on chronic kidney disease, improved. 3. Amyotrophic lateral sclerosis. 4. Hyponatremia, chronic. 5. Urinary retention. 6. Hypertension. CONSULTATIONS: Dr. Ramsey and Dr. Whitaker with Cardiology Service. PERTINENT LAB AND X-RAY FINDINGS: Sodium ranged between 125 to 131, creatinine ranged between 1.28 to 1.55. Estimated GFR ranged between 45 to 57. Troponin I negative x3. TSH 3.16. CBC showed hemoglobin ranged between 12.1 to 13.4. Portable chest x-ray dated 10/24/2018, showed small left pleural effusion. 2D transthoracic echocardiogram dated 10/25/2018, showed ejection fraction of 40%, dyskinesis of the septum, hypokinesis of the septal and inferior wall, [id number] mitral valve regurgitation and moderate tricuspid regurgitation, old vegetation noted on the mitral valve. HOSPITAL COURSE: The patient was initially admitted to the telemetry unit after presenting with shortness of breath. The patient underwent general evaluation including telemetry and EKG evaluation showing atrial fibrillation with rapid ventricular response. The patient was placed on IV digoxin and Cardizem and evaluated by the Cardiology Service. The patient was increased on his beta-kelli therapy to 12.5 mg twice daily in addition to digoxin 0.125 mg daily. The patient's overall heart rate was improved with adjustment of digoxin and Coreg. The patient with a long-standing history of noncompliance with metabolic derangement including chronic hyponatremia. The patient initially received low volume intravenous normal saline with stable sodium values by the time of discharge. The patient was also noted with mild acute kidney injury, improving with volume replacement. The patient was also noted with urinary retention, however, declined any intervention including Gerard catheter placement or recommendations for in and out catheterizations. The patient overall states he is ready for discharge on 10/27/2018. I have examined the patient at the time of discharge and discussed followup instructions. The patient verbalized understanding and in agreement and ready for discharge on 10/27/2018. DISCHARGE MEDICATIONS: 1. Aspirin 81 mg p.o. daily. 2. Bupropion XL 150 mg p.o. daily. 3. Doxycycline 100 mg p.o. b.i.d. 4. Loperamide 2 mg p.o. daily. 5. Multivitamin 1 tablet p.o. daily. 6. Coreg 12.5 mg p.o. b.i.d. 7. Digoxin 0.125 mg p.o. daily. FOLLOWUP: 1. The patient may follow up with his primary care provider in [place], [place] within the next 7 days. 2. The patient may follow up with Dr. Lionel Whitaker with [facility] and call his office for appointment time and date. SPECIAL INSTRUCTIONS: No anticoagulation due to history of multiple falls and noncompliance. DIET: Regular. CODE STATUS: Do not attempt resuscitation. DISPOSITION: To home, 10/27/2018. TIME SPENT: Total time preparing and coordinating discharge, 34 minutes. Job ID: [id number]
[2018-10-28] MEDS ORDERED: Bupropion 150 MG XL TAB PO SCH (09:00)
[2018-10-28] MEDS ORDERED: Loperamide HCl 2 MG CAP PO SCH (09:00)
[2018-10-28] MEDS ORDERED: Non-Formulary Item 1 EACH (Multivitamin [Multivitamins] 1 CAP) PO SCH (09:00)
--- NOTE | 2018-10-29 02:30 | PQF ---
[facility] Assistant Crystal Reports Winform Viewer REENA,CHARLIE GABRIEL MAG RUFFIN [id number] [facility]-262 [id number] CLINICAL DOCUMENTATION CLARIFICATION FORM: POST DISCHARGE Addendum to original discharge summary date: ____ Late entry note date: __ DATE: 10/29/18 ATTN: Mag Allen Please exercise your independent, professional judgment in responding to the clarification form. Clinical indicators are provided on the bottom of this form for your review Can you please further specify if Acute Respiratory Failure is ruled in or ruled out? Acute Respiratory Failure [ ] Ruled in diagnosis [ ] Continue to treat [ ] Resolved [ x ] Ruled out diagnosis [ ] Cannot rule out diagnosis [ ] Other diagnosis please specify [ ] Unable to determine For continuity of documentation, please document condition throughout progress notes and discharge summary. Thank You. CLINICAL INDICATORS H and P 10/24 pg.1- "While in the ER, he was found to be in atrial fibrillation with rapid ventricular response" H and P 10/24 pg.1- "His main symptoms are the shortness of breath and palpitations as well as chest pain" H and P 10/24 pg.3- "Acute Respiratory failure. This is likely as a result of the atrial fibrillation with rapid ventricular response" Chest X-ray 10/24- "Impression: small pleural effusion" DS pg. 1 10/27- "Discharge diagnosis: Atrial fibrillation with variable rate control" RISK FACTORS Current everyday smoker- Palliative consult pg.1 10/24 Chronic atrial fibrillation- Consult Dr. Everett pg.10/25 Hypertension- Consult Dr. Everett pg.14/12 ALS- H and P pg.1 10/24 TREATMENTS Chest X-ray- 10/24 Palliative Consult- 10/24 Dr. Jean-Baptiste Cardiac Consult- 10/24 Dr. Marcial Diltiazem (Cardizem) 125mg IV- MAY 24 (This form is maintained as a part of the permanent medical record) 2014 [employer] All Rights Reserved Stef [email or web address] [not provided] MTDD
== END 2018-10-27 19:50 | disposition home or self-care (01) | DRG 309 ==
LOC: ERS 04:58 → OBSVTOIN 06:34 → 2NO 06:34
PROVIDERS: ADMIT Hospitalist; ATTEND Hospitalist
DX: I48.91 Unspecified atrial fibrillation (principal); G12.21 Amyotrophic lateral sclerosis; E87.1 Hypo-osmolality and hyponatremia; N17.9 Acute kidney failure, unspecified; N18.9 Chronic kidney disease, unspecified; I12.9 Hypertensive chronic kidney disease with stage 1 through stage 4 chronic kidney disease, or unspecified chronic kidney disease; Z51.5 Encounter for palliative care; F10.20 Alcohol dependence, uncomplicated; R33.9 Retention of urine, unspecified; Z99.3 Dependence on wheelchair; Z79.82 Long term (current) use of aspirin; Z79.899 Other long term (current) drug therapy; Z88.8 Allergy status to other drugs, medicaments and biological substances; Z91.14 Patient's other noncompliance with medication regimen
CPT/HCPCS: 36415; 71045; 80048; 80053; 84443; 84484; 85025; 93005; 93306; 96361; 96374; J1160

== ENCOUNTER 2019-04-10 15:02 | Emergency (ER) | payer OTHER ==
[2019-04-10 16:07] LABS: Hemoglobin 15.4 g/dL (14.0-18.0); Mean Corpuscular HGB CONC 34.6 g/dL (32.0-36.0); Mean Corpuscular Hemoglobin 34.9 pg (27.0-31.0); Mean Platelet Volume 6.3 fL (7.4-10.4); Platelet Count 364 thou/uL (130-400); RBC Distribution Width 12.4 % (11.5-14.5); Red Blood Cell (RBC) Count 4.42 mill/uL (4.70-6.10)
[2019-04-10 16:08] LABS: #Eosinphils 0.2 thou/uL (0.0-0.7); #Lymphocytes 1.9 thou/uL (1.20-3.40); #Monocytes 0.7 thou/uL (0.11-0.59); #Neutrophils 4.7 thou/uL (1.40-6.50); %Basophils 0.3 % (0.0-1.0); %Eosinophils 2.9 % (0.0-10.0); %Lymphocytes 25.2 % (21.0-51.0); %Monocytes 8.7 % (0.0-10.0); %Neutrophils 62.9 % (42.0-75.0); White Blood Cell (WBC) Count 7.5 thou/uL (4.8-10.8)
[2019-04-10 16:25] LABS: ALT (SGPT) 13 U/L (8-55); AST (SGOT) 15 U/L (5-34); Albumin 4.6 g/dL (3.4-4.8); Alkaline Phosphatase 110 U/L (40-110); Anion Gap 15 mmol/L (10-20); BUN (Urea Nitrogen) 20 mg/dL (8.4-25.7); Bilirubin, Total 1.1 mg/dL (0.2-1.2); Calc. Creatinine Clearance 0 mL/min (70-130); Calcium 9.8 mg/dL (7.8-10.44); Carbon Dioxide 27 mmol/L (23-31); Chloride 94 mmol/L (98-107); Estimated GFR-MDRD 43; Glucose 84 mg/dL (80-115); Potassium 3.9 mmol/L (3.5-5.1); Protein, Total 7.6 g/dL (5.8-8.1); Sodium 132 mmol/L (136-145)
--- NOTE | 2019-04-10 18:13 | RAD ---
LEFT FOOT 3 VIEWS: Date: 04/10/2019 HISTORY: Foot wound. FINDINGS: No osseous abnormality. There is no evidence of osteomyelitis. Mild degenerative change at the first MTP joint. IMPRESSION: No acute osseous abnormality identified. POS: [facility]
== END 2019-04-10 18:51 | disposition home or self-care (01) ==
LOC: ERS 15:02
DX: S90.812A Abrasion, left foot, initial encounter (principal); L03.116 Cellulitis of left lower limb; F17.210 Nicotine dependence, cigarettes, uncomplicated; L97.529 Non-pressure chronic ulcer of other part of left foot with unspecified severity; Z79.899 Other long term (current) drug therapy; W22.8XXA Striking against or struck by other objects, initial encounter
CPT/HCPCS: 36415; 80053; 85025; 86140

== ENCOUNTER 2019-05-31 16:29 | Inpatient (IN) | payer MEDICARE, MEDICAID ==
[~2019-05-31 16:29] MED LIST: Heparin 1,000 UNITS/ML VIAL ONE
--- NOTE | 2019-05-31 20:45 | PDOC.HHP ---
Hospitalist HPI - History of Present Illness draining wound on left foot History of Present Illness: 64yo M w/ MHx of ALS (diagnosed 10 years ago, wheelchair bound), MRSA endocarditis (2017, completed treatment), chronic atrial fibrillation (rate controlled, poor anticoagulation candidate per cardiology), and urinary retention presents for draining left foot wound. Per patient, has been banging his left foot over the floor and over the past month developed wound on the lateral aspect of the foot that kept increasing in size, and has been draining over the past week. As outpatient was started on keflex, then transitioned to ciprofloxacin after no improved and worsening of drainage, but persisted so came to the ED. On encounter, lying comfortably in bed and complains of left foot drainage, redness. Denies recent fall, fatigue, fever, chills, night sweats, chest pain, palpitations, abdominal pain, constipation, diarrhea, melena, hematochezia, dysuria, burning on urination, urinary frequency. ED Course: In outside ED, imaging showed pseudojones fractures, single dosages of vanc and zosyn were admistered, and was transfered to ED. Was admitted to the medical floor for further treatment Hospitalist ROS - Review of Systems Constitutional: denies: fever, chills, sweats, weakness, malaise, other Respiratory: denies: cough, dry, shortness of breath, hemoptysis, SOB with excertion, pleuritic pain, sputum, wheezing, other Cardiovascular: denies: chest pain, palpitations, orthopnea, paroxysmal noc. dyspnea, edema, light headedness, other Gastrointestinal: denies: nausea, vomiting, abdominal pain, diarrhea, constipation, melena, hematochezia, other Genitourinary: reports: retention (has history of retention including as inpatient). denies: dysuria, frequency, incontinence, hematuria, other Skin: reports: lesions (multiple chronic ulcers in feet) Neurological: reports: weakness (baseline LE weakness, spasms in upper extremities). denies: change in speech, confusion, seizures All other systems reviewed; all pertinent +/- noted in HPI/Subj Hospitalist History - Past Medical History Source: patient, old records Cardiac: reports: AFIB, HTN Infectious Disease: reports: Other (MRSA endocarditis (2017)) Other Medical History: ALS - Past Surgical History Other Surgical History: right hand surgery per patient, who is poor historian - Family History Family History: reports: hypertension - Social History Other Social History: He lives at home alone. He gets around with a wheelchair. He has a daughter, Aruna, who is his medical power of criminal defense attorney and it is mentioned that he does have a history of tobacco abuse as well as he drinks alcohol. He does not want to be resuscitated. He is a DNR. - Exam General Appearance: NAD, awake alert Eye: PERRL, anicteric sclera ENT: normocephalic atraumatic, moist mucosa Neck: no JVD Heart: irregular, diminshed peripheral pulses Heart - other findings: normal rate Respiratory: CTAB, no wheezes, no rales, no ronchi Gastrointestinal: soft, non-tender, non-distended, normal bowel sounds Extremities: no edema Extremities - other findings: left lateral ulcer approximately 5cm diameter, purulent, surrounding erythe Musculoskeletal: diffuse muscle atrophy Musculoskeletal - other findings: LE: strength 1/5 throughout; UE strength 4/5 Psychiatric: normal affect, normal behavior, A&O x 3 Hospitalist H&P A/P - Plan Plan: #purulent left foot ulcer -likely acute infection of chronic ulceration due to repeated trauma -no systemic signs -no leukocytosis; CRP mildly elevated -xray showing no signs of osteomyelitis -started vancomycin -blood and wound culture -MRI to assess osteomyelitis #chronic atrial fibrillation -currently rate controlled -CHADVASC 2 -per cardiology on recent visit, not candidate for anticoagulation due to repeated falls and nonadherence #ALS -currently at baseline #CKD III -baseline around 1.2; 1.4 on presentation -already on losartan Disposition/PPI DNAR DVT PPx: heparin subq GI PPx: no indication
[2019-05-31] MEDS ORDERED: Vancomycin HCl 1.5 GM in Sodium Chloride 0.9% 500 ML IVPB SCH (21:00)
[2019-05-31 22:35] VITALS: BMI 19.0
[2019-05-31] MEDS ORDERED: Vancomycin 1.5 GRAM/300 ML BAG 1.5 GM in Premix Bag 1 BAG IVPB SCH (23:59)
[2019-06-01] MEDS: HYDROcodone/Acetaminophen 10/325 mg Tablet PO PRN ×4 (01:08→20:33)
[2019-06-01 05:28] LABS: Anion Gap 16 mmol/L (10-20); BUN (Urea Nitrogen) 11 mg/dL (8.4-25.7); Calc. Creatinine Clearance 60 mL/min (70-130); Calcium 8.3 mg/dL (7.8-10.44); Carbon Dioxide 19 mmol/L (23-31); Chloride 102 mmol/L (98-107); Estimated GFR-MDRD 66; Glucose 90 mg/dL (80-115); Magnesium 1.2 mg/dL (1.6-2.6); Potassium 3.3 mmol/L (3.5-5.1); Sodium 134 mmol/L (136-145)
[2019-06-01] MEDS: Enoxaparin Sodium 30 MG/0.3 ML SYRINGE SC SCH (08:53)
[2019-06-01] MEDS: Gabapentin 100 MG CAP PO SCH ×2 (08:54→20:34)
[2019-06-01] MEDS: Carvedilol 6.25 MG TAB PO SCH ×2 (08:54→16:58)
[2019-06-01] MEDS: Bupropion 150 MG XL TAB PO SCH (08:54)
[2019-06-01] MEDS: Digoxin 0.125 MG TAB PO SCH (08:54)
[2019-06-01] MEDS: Multivit, Therapeutic 1 TAB PO SCH (08:55)
[2019-06-01] MEDS: Aspirin Chewable 81 MG TAB PO SCH (08:55)
[2019-06-01] MEDS ORDERED: Gabapentin 100 MG CAP PO SCH (09:00)
[2019-06-01] MEDS ORDERED: Potassium Chloride 20 MEQ TAB PO SCH (12:15)
--- NOTE | 2019-06-01 14:04 | MRI ---
MRI left foot noncontrast HISTORY: Infection. Ulceration. Osteomyelitis. FINDINGS: Ulceration is evident over the posterior lateral aspect of the forefoot. A fairly large ill -defined area of abnormal bone marrow signal within the lateral base of the fifth metatarsal measures up to 2.7 cm length by 1.0 cm width. Small amount of edema within the adjacent soft tissues. The slightly distracted fragment described on recent radiograph is not well delineated on this exam. No bone marrow edema elsewhere. Scattered mild degenerative changes. No abnormal fluid pockets. IMPRESSION: In the setting of ulceration and infection, the bone marrow edema at the fifth metatarsal base is evidence of osteomyelitis.
[2019-06-01] MEDS: Sodium Chloride 0.9% 1,000 ML IV SCH ×2 (14:23→22:57)
--- NOTE | 2019-06-01 15:55 | PDOC.HOSPP ---
- Subjective Encounter Date: 06/01/19 Encounter Time: 10:00 Subjective: no overnight events. This morning, complains of burning and tingling sensation in both feet, mostly right foot. Otherwise has no complaints. - Objective Vital Signs & Weight: Vital Signs (12 hours) Temp Pulse Resp BP Pulse Ox 06/01/19 12:04 97.1 F L 71 16 106/71 97 06/01/19 08:54 87 06/01/19 07:55 97.2 F L 87 16 130/77 100 06/01/19 03:54 102 H Weight Weight 140 lb I&O: 05/31/19 06/01/19 06/02/19 06:59 06:59 06:59 Output Total 150 Balance -150 Result Diagrams: 06/01/19 05:02 Hospitalist ROS - Review of Systems Constitutional: denies: fever, chills, sweats, weakness, malaise, other Respiratory: denies: cough, dry, shortness of breath, hemoptysis, SOB with excertion, pleuritic pain, sputum, wheezing, other Cardiovascular: denies: chest pain, palpitations, orthopnea, paroxysmal noc. dyspnea, edema, light headedness, other Gastrointestinal: denies: nausea, vomiting, abdominal pain, diarrhea, constipation, melena, hematochezia, other Genitourinary: denies: dysuria, frequency, incontinence, hematuria, retention, other - Medication Medications: Active Medications Generic Name Dose Route Start Last Admin Trade Name Freq PRN Reason Stop Dose Admin Hydrocodone Bitart/Acetaminophen 1 tab 06/01/19 00:58 06/01/19 14:25 Woden 10/325 PO 1 tab Q6H PRN Administration Moderate Pain (4-6) Aspirin 81 mg 06/01/19 09:00 06/01/19 08:55 Aspirin Chewable PO 81 mg DAILY NOLA Administration Bupropion HCl 150 mg 06/01/19 09:00 06/01/19 08:54 Wellbutrin Xl PO 150 mg DAILY NOLA Administration Carvedilol 12.5 mg 06/01/19 08:00 06/01/19 08:54 Coreg PO 12.5 mg BID-WM NOLA Administration Digoxin 0.125 mg 06/01/19 09:00 06/01/19 08:54 Lanoxin PO 0.125 mg DAILY NOLA Administration Enoxaparin Sodium 30 mg 06/01/19 09:00 06/01/19 08:53 Lovenox SC 30 mg 0900 NOLA Administration Gabapentin 100 mg 06/01/19 09:00 06/01/19 08:54 Neurontin PO 100 mg BID NOLA Administration HCTZ/Losartan Potassium 1 tab 06/01/19 09:00 06/01/19 08:54 Hyzaar 50/12.5 PO 1 tab DAILY NOLA Administration Sodium Chloride 1,000 mls @ 100 mls/hr 06/01/19 12:30 06/01/19 14:23 Normal Saline 0.9% IV 1,000 mls .Q10H NOLA Administration Multivitamins 1 tab 06/01/19 09:00 06/01/19 08:55 Theragran PO 1 tab DAILY NOLA Administration - Exam General Appearance: NAD, awake alert ENT: normocephalic atraumatic, no oropharyngeal lesions, moist mucosa Heart: RRR, no murmur, no gallops, no rubs, normal peripheral pulses Respiratory: CTAB, no wheezes, no rales, no ronchi, normal chest expansion, no tachypnea, normal percussion Gastrointestinal: soft, non-tender, non-distended, normal bowel sounds, no palpable masses Extremities: no cyanosis, no clubbing, no edema Skin: normal turgor, no lesions, no rashes Skin - other findings: multiple chronic nodules and ulcerations on feet, noninfected except for LL Neurological: cranial nerve grossly intact, normal sensation to touch Musculoskeletal - other findings: LE 1/5, UE 5/5; unchanged Psychiatric: normal affect, normal behavior, A&O x 3 Hosp A/P - Plan #chronic left lateral foot ulcer, infected -continue vanc -cultures pending -ID consult pending #lower extremity neuropathic pain -burning and tingling in nature -may be due to ALS (30% of patients have tingling paresthesias) -will continue gabapentin which was restarted as inpatient (patient doesn't know anything about gabapentin on questioning) -can increase dose if necessary DNAR
[2019-06-01] MEDS ORDERED: Magnesium Oxide 400 MG TAB PO SCH (16:00)
--- NOTE | 2019-06-01 16:23 | CON ---
DATE OF CONSULTATION: 06/01/2019 REASON FOR CONSULTATION: Left foot osteomyelitis. HISTORY OF PRESENT ILLNESS: A 64-year-old patient whom I had seen in 2017 with a history of progressive lateral sclerosis, diagnosed in [place] in 2000, with a steady decline in his mobility and strength in lower extremities. 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 The transesophageal echocardiogram actually had been done a few months before and there was anterior mitral valve leaflet vegetation. I have not seen the patient since this visit, although he was admitted in 10/2018 with atrial fibrillation, [id number] kidney disease, hyponatremia, and urinary retention. Now, he is back here because of left foot ulcer, which is associated with his mobility impairment in traumatic injury secondary to a metallic frame in his wheelchair. This ulcer has been present for the past 2 months and is associated with progressive inflammatory process, which has failed oral antimicrobial therapy. He is currently on broad-spectrum coverage and imaging studies are consistent with osteomyelitis of the 5th metatarsal. Currently, he is awake. He is quite pleasant. He seems a little more weak than when I saw him the last time. He is oriented. No headaches. No visual symptoms, sore throat, odynophagia, or dysphagia. A little bit of dyspnea. No chest pain. No sputum production. No abdominal pain. He is actually having diarrhea now after the antimicrobials were started. Voiding without difficulty. He has gotten weaker in his lower extremities because of his chronic neurological condition. MEDICAL HISTORY: 1. Progressive lateral sclerosis. 2. Atrial fibrillation. 3. Hypertension. 4. 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 SOCIAL HISTORY: Lives by himself, close by. Smokes a pack every 3 days. He drinks daily 3-4 drinks per day. ALLERGIES: IODINE. FAMILY HISTORY: Noncontributory. CURRENT MEDICATIONS: 1. Wellbutrin. 2. Coreg. 3. Lanoxin. 4. Neurontin. 5. Hyzaar. 6. Theragran. 7. Vancomycin. 8. Coreg. PHYSICAL EXAMINATION: VITAL SIGNS: T-max 98, blood pressure 106/71, pulse 71, respirations 16, and O2 saturation 97. SKIN: The area of ulceration about 1.5 cm at the lateral aspect of the left foot at the base of the 5th metatarsal. There is erythema associated with this area and moderate to marked tenderness. I tried to probe the area with a Q-tip, but it could not reach any deep structure, particularly no evidence of bone exposure at the moment. He has a peripheral IV access and is voiding spontaneously in the toilet. No lymphadenopathy. HEENT: Ocular movements conjugate. Sclerae white. Pupils are equal. Conjunctivae normal. Oral cavity with numerous missing teeth, remainder ones with marked decay and gum disease. NECK: Supple. No jugular vein distention. LUNGS: Symmetric with clear breath sounds. HEART: S1 and S2. Regular rate. No S3 or S4. ABDOMEN: Soft, not distended or tender. No ascites. No bladder distention. EXTREMITIES: Diminished pulses in popliteals and dorsalis pedis. 1 to 2+ edema in lower extremities, quite symmetric. The patient has weakness in lower extremities. The strength I would say is 3/5 to 4/5 and some hyperreflexia noted. NEUROLOGIC: His cognitive function appears to be intact. LABORATORY DATA: Sodium 134, creatinine 1.11 and his baseline is 0.99. White cell count is 8.6, hemoglobin 10.7, platelets 362 with 47% neutrophils, and 38% lymphocytes. We have stool lactoferrin and C difficile tests that were all negative and there is a foot ulcer culture with no organisms seen. Possible mixed culture, it is described as an abscess, but I think this probably is a surface ulcer culture. Two sets of blood culture, no growth thus far. Foot x-ray with a 5th metatarsal Jang fracture of the 5th metatarsal base. An MRI of the foot with evidence of bone marrow edema of the 5th metatarsal. ASSESSMENT: 1. Progressive lateral sclerosis. 2. Mobility impairment. 3. Chronic injury in the left lateral foot at the base of the 5th metatarsal. 4. Chronic ulcer with evidence of osteomyelitis of the 5th metatarsal base with associated pathologic fracture. 5. Previous history of endocarditis, which seems to be in remission at the moment. DISCUSSION: The findings in the MRI could be consistent with a fracture associated with the injury or early osteomyelitis. Management would include evaluation of vascular supply with duplex arterial ultrasound of the left lower extremity and antimicrobial therapy, which would have to be broad-spectrum. In terms of surgical intervention, we could either have surgeon debride the area now or just give him antimicrobials and evaluate the results of conservative management with subsequent surgical intervention if needed. Evidently, if the arterial supply is abnormal, then a formal vascular evaluation would be recommended. Would add Rocephin to the current regimen and then follow up clinical response. Again, surgical intervention could be postponed since the left 5th metatarsal area may be associated with the fracture noted on x-ray rather than infected process. An infection at least in the soft tissues is likely though and osteomyelitis is possible as well. Job ID: [id number]
--- NOTE | 2019-06-01 16:55 | ULT ---
Left lower extremity arterial Doppler ultrasound: 06/01/2019 COMPARISON: None HISTORY: Decreased pulses, ulcer of left foot TECHNIQUE: Multiplanar grayscale sonographic imaging the arterial structures of the left lower extrem ity provided. Images include Doppler interrogation with color flow and spectral analysis FINDINGS: The left common femoral artery demonstrates atherosclerotic calcification, is patent, and d emonstrates a biphasic waveform. Left profunda femoral artery is patent and demonstrates a biphasic waveform as well. The left superficial femoral artery proximally is patent with a low amplitude abnor mal monophasic waveform. Similar findings are noted within the mid and distal left superficial femoral artery. There is an abnormal low amplitude monophasic tardus parvus waveform within the left popliteal artery, left anterior tibial artery, left dorsalis pedis artery, and left posterior tibial artery. Peak systolic velocity (centimeters per second) is 128 in the left CLAIM CLINICIAN, 49-67 within the left SFA, 20 4 within the left profunda femoral artery, 51 within the left popliteal artery, 42 within the left posterior tibial artery, 39 within the left anterior tibial artery, and 30 within the left dorsalis p jerrell artery. IMPRESSION: Arterial structures of the left lower extremity are patent. Abnormal waveforms are noted throughout the left lower extremity, especially involving the superficial femoral artery through the foot. Findings suggest hemodynamically significant stenosis, likely in the region of the distal C FA or proximal SFA. CT angiogram may be beneficial for further assessment.
[2019-06-01] MEDS: cefTRIAXone\\ROCEPHIN 2 GM in Sodium Chloride 0.9% 100 ML IVPB SCH (16:58)
[2019-06-01] MEDS ORDERED: Nicotine 21 MG PATCH TD SCH (17:15)
[2019-06-01] MEDS: Vancomycin 1.5 GRAM/300 ML BAG 1.5 GM in Premix Bag 1 BAG IVPB SCH (20:35)
[2019-06-02 05:22] LABS: #Basophils 0.1 thou/uL (0.0-0.2); #Eosinphils 0.4 thou/uL (0.0-0.7); #Lymphocytes 1.6 thou/uL (1.20-3.40); #Monocytes 0.9 thou/uL (0.11-0.59); #Neutrophils 4.4 thou/uL (1.40-6.50); %Eosinophils 5.3 % (0.0-10.0); %Lymphocytes 21.6 % (21.0-51.0); %Monocytes 11.9 % (0.0-10.0); %Neutrophils 60.4 % (42.0-75.0); Hemoglobin 10.4 g/dL (14.0-18.0); Mean Corpuscular HGB CONC 33.2 g/dL (32.0-36.0); Mean Corpuscular Hemoglobin 34.1 pg (27.0-31.0); Mean Platelet Volume 5.9 fL (7.4-10.4); Platelet Count 313 thou/uL (130-400); RBC Distribution Width 12.5 % (11.5-14.5); Red Blood Cell (RBC) Count 3.06 mill/uL (4.70-6.10); White Blood Cell (WBC) Count 7.3 thou/uL (4.8-10.8)
[2019-06-02 05:44] LABS: Anion Gap 13 mmol/L (10-20); BUN (Urea Nitrogen) 11 mg/dL (8.4-25.7); Calc. Creatinine Clearance 60 mL/min (70-130); Calcium 8.3 mg/dL (7.8-10.44); Carbon Dioxide 21 mmol/L (23-31); Chloride 103 mmol/L (98-107); Estimated GFR-MDRD 67; Glucose 79 mg/dL (80-115); Magnesium 1.3 mg/dL (1.6-2.6); Potassium 3.8 mmol/L (3.5-5.1); Sodium 133 mmol/L (136-145)
[2019-06-02] MEDS: HYDROcodone/Acetaminophen 10/325 mg Tablet PO PRN ×3 (07:36→21:43)
[2019-06-02] MEDS: Vancomycin 1.5 GRAM/300 ML BAG 1.5 GM in Premix Bag 1 BAG IVPB SCH ×2 (08:37→21:02)
[2019-06-02] MEDS: Potassium Chloride 20 MEQ TAB PO SCH (08:38)
[2019-06-02] MEDS: Enoxaparin Sodium 30 MG/0.3 ML SYRINGE SC SCH (08:38)
[2019-06-02] MEDS: Carvedilol 6.25 MG TAB PO SCH ×2 (08:38→16:32)
[2019-06-02] MEDS: Multivit, Therapeutic 1 TAB PO SCH (08:38)
[2019-06-02] MEDS: Gabapentin 100 MG CAP PO SCH (08:38)
[2019-06-02] MEDS: Bupropion 150 MG XL TAB PO SCH (08:38)
[2019-06-02] MEDS: Aspirin Chewable 81 MG TAB PO SCH (08:39)
[2019-06-02] MEDS: Digoxin 0.125 MG TAB PO SCH (08:39)
[2019-06-02] MEDS: Nicotine 21 MG PATCH TD SCH (08:39)
[2019-06-02] MEDS ORDERED: Magnesium Oxide 400 MG TAB PO SCH (09:00)
[2019-06-02] MEDS ORDERED: Gabapentin 100 MG CAP PO SCH (12:00)
[2019-06-02] MEDS: Sodium Chloride 0.9% 1,000 ML IV SCH ×2 (12:31→18:42)
[2019-06-02] MEDS: cefTRIAXone\\ROCEPHIN 2 GM in Sodium Chloride 0.9% 100 ML IVPB SCH (16:32)
--- NOTE | 2019-06-02 16:52 | PQF ---
CHARLIE VALLES GABRIEL SZYMANSKIBEENessa, MICHAEL [id number] SURG [id number] CLINICAL DOCUMENTATION IMPROVEMENT CLARIFICATION FORM: ICD-10 Updated PLEASE DO AN ADDENDUM TO THE PROGRESS NOTE WITH ANY DOCUMENTATION UPDATES OR ADDITIONS AND CARRY THROUGH TO DC SUMMARY. THANK YOU. Date: 06/02/2019 ATTN: DR. Ne ALVAREZ Please exercise your independent, professional judgment in responding to the clarification form. Clinical indicators are provided on the bottom of this form for your review. Please check appropriate box(s): [ ] Protein Calorie Malnutrition: [ ] Mild [ ] Moderate [ x ] Severe [ ] Cachexia [ ] Other diagnosis [ ] Unable to determine In addition, please specify: Present on Admission (POA): [x ] Yes [ ] No [ ] Unable to determine CLINICAL INDICATORS - SIGNS / SYMPTOMS / LABS / RESULTS AND LOCATION IN MR 06/01 RD ASSESSMENT: BMI 19.0; HE STATES HE HAS HAD DIARRHEA FOR A COUPLE OF DAYS SINCE THEY STARTED HIM ON ANTIBIOTICS, -3.4 % WEIGHT CHANGE -NUTRITION DIAGNOSIS MALNUTRITION RELATED TO ALS AND ALCOHOL ABUSE EVIDENCED BY ESTIMATED INTAKE < 75% NEEDS X 1 MONTH, SEVERE BUCCAL FAT PAD, TEMPORAL, TRAPEZIUS AND FEMORAL MUSCLE WASTING SUGGESTIVE OF SEVERE MALNUTRITION IN THE CONTEXT OF CHRONIC ILLNESS. RISK: PT IS WHEELCHAIR BOUND, LIVES ALONE, HX ALS, CHRONIC LEFT LATERAL FOOT ULCER, INFECTED ( SHEMESH/PN) 05/31 TREATMENTS DIETARY CONSULT 06/01 RECOMMEND ENSURE ENLIVE QD 06/01 Moderate Malnutrition (in acute illness) Energy Intake: <75% of estimated energy requirement for > 7 days Weight Loss: 1-2%/1 week; 5%/ 1 month; 7.5%/3 months Other: mild body fat loss; mild muscle mass loss; mild fluid accumulation; Severe Malnutrition (in acute illness) Energy Intake: < 50% of estimated energy requirement for > 5 days Weight Loss: >1-2%/1 week; >5%/1 month; >7.5%/3 months Other: moderate body fat loss; moderate muscle mass loss; moderate- severe fluid accumulation; measurably reduced bar attendant strength Moderate Malnutrition (in chronic illness) Energy Intake: <75% of estimated energy requirement for >1 month Weight Loss: 5%/1 month; 7.5%/3 months; 10%/6 months; 20%/1 year Other: mild body fat loss; mild muscle mass loss; mild fluid accumulation Severe Malnutrition (in chronic illness) Energy Intake: <75% of estimated energy requirement for >1 month Weight Loss: >5%/1 month; >7.5%/3 months; >10%/6 months; >20%/1 year Other: severe body fat loss; severe muscle mass loss; severe fluid accumulation ; measurably reduced bar attendant strength THANK YOU! SONAL (This form is maintained as a part of the permanent medical record) 2014 [employer]. All Rights Reserved [email or web address] [phone] MTDD
--- NOTE | 2019-06-02 17:28 | PRG ---
DATE OF SERVICE: 06/02/2019 Feeling about the same. The pain in the foot is bothering him. Intermittently, he is afebrile. The left foot skin with less erythema. White cell count 7.3. The patient had an ultrasound of lower extremity and it showed patent arterial structures with some abnormal waveforms, I would probably advise a CT angio to further evaluate the area and then, revascularization if needed or just a Vascular evaluation with one of the vascular surgeons. He is currently on vancomycin and ceftriaxone to be continued. In view of the improvement in inflammatory process, treat for a long time. PICC line placement. Follow up imaging studies. May need surgical debridement, but I would not do it until after the full CT angio and the revascularization if needed. I probably would just try to treat him conservatively for now. Job ID: [id number]
[2019-06-02] MEDS: Gabapentin 300 MG CAP PO SCH (21:05)
[2019-06-02] MEDS: Magnesium Oxide 400 MG TAB PO SCH (21:05)
--- NOTE | 2019-06-02 22:10 | PDOC.HOSPP ---
- Subjective Encounter Date: 06/02/19 Encounter Time: 11:00 Subjective: No overnight events. This morning, complains of increased burning and tingling sensation in left lower extremity. Otherwise no complaints. - Objective Vital Signs & Weight: Vital Signs (12 hours) Temp Pulse Resp BP Pulse Ox 06/02/19 15:27 97.1 F L 98 18 107/73 97 06/02/19 11:48 97.6 F 84 22 H 108/62 99 Weight Admit Weight 140 lb Weight 140 lb I&O: 06/01/19 06/02/19 06/03/19 06:59 06:59 06:59 Intake Total 2560 2540 Output Total 150 200 Balance -150 2360 2540 Result Diagrams: 06/02/19 05:03 06/02/19 05:03 Hospitalist ROS - Review of Systems Constitutional: denies: fever, chills, sweats, weakness, malaise, other Respiratory: denies: cough, dry, shortness of breath, hemoptysis, SOB with excertion, pleuritic pain, sputum, wheezing, other Cardiovascular: denies: chest pain, palpitations, orthopnea, paroxysmal noc. dyspnea, edema, light headedness, other Gastrointestinal: denies: nausea, vomiting, abdominal pain, diarrhea, constipation, melena, hematochezia, other Genitourinary: denies: dysuria, frequency, incontinence, hematuria, retention, other Skin: reports: lesions Neurological: reports: weakness (at baseline due to ALS), numbness, incoordination. denies: change in speech, confusion - Medication Medications: Active Medications Generic Name Dose Route Start Last Admin Trade Name Scottq PRN Reason Stop Dose Admin Hydrocodone Bitart/Acetaminophen 1 tab 06/01/19 00:58 06/02/19 21:43 [place] 10/325 PO 1 tab Q6H PRN Administration Moderate Pain (4-6) Aspirin 81 mg 06/01/19 09:00 06/02/19 08:39 Aspirin Chewable PO 81 mg DAILY NOLA Administration Bupropion HCl 150 mg 06/01/19 09:00 06/02/19 08:38 Wellbutrin Xl PO 150 mg DAILY NOLA Administration Carvedilol 12.5 mg 06/01/19 08:00 06/02/19 16:32 Coreg PO 12.5 mg BID-WM NOLA Administration Digoxin 0.125 mg 06/01/19 09:00 06/02/19 08:39 Lanoxin PO 0.125 mg DAILY NOLA Administration Enoxaparin Sodium 30 mg 06/01/19 09:00 06/02/19 08:38 Lovenox SC Not Given 0900 NOLA Gabapentin 300 mg 06/02/19 21:00 06/02/19 21:05 Neurontin PO 300 mg BID NOLA Administration HCTZ/Losartan Potassium 1 tab 06/01/19 09:00 06/02/19 08:39 Hyzaar 50/12.5 PO 1 tab DAILY NOLA Administration Vancomycin HCl 1.5 gm/ Device 300 mls @ 200 mls/hr 06/01/19 20:00 06/02/19 21 :02 IVPB 300 mls 0800,2000 NOLA Administration Sodium Chloride 1,000 mls @ 100 mls/hr 06/01/19 12:30 06/02/19 18:42 Normal Saline 0.9% IV Not Given .Q10H NOLA Ceftriaxone Sodium 2 gm/ 100 mls @ 200 mls/hr 06/01/19 16:00 06/02/19 16:32 Sodium Chloride IVPB 100 mls Q24HR NOLA Administration Magnesium Oxide 400 mg 06/02/19 21:00 06/02/19 21:05 Magnesium Oxide PO 400 mg BID NOLA Administration Multivitamins 1 tab 06/01/19 09:00 06/02/19 08:38 Theragran PO 1 tab DAILY NOLA Administration Nicotine 21 mg 06/02/19 09:00 06/02/19 08:39 Nicoderm Patch TD 21 mg DAILY NOLA Administration Potassium Chloride 40 meq 06/02/19 08:00 06/02/19 08:38 K-Dur PO 40 meq QAM-WM NOLA Administration - Exam General Appearance: NAD, awake alert Heart: RRR, no murmur, no gallops Respiratory: CTAB, no wheezes, no rales, no ronchi Gastrointestinal: soft, non-tender, non-distended, normal bowel sounds Extremities: no edema Skin - other findings: multiple b/l feet ulcers, chronic, noninfected Musculoskeletal - other findings: left lateral foot ulcer with improving erythema Psychiatric: normal affect, normal behavior, A&O x 3 Hosp A/P - Plan #chronic left lateral foot ulcer, infected -continue vanc, ceftriaxone per ID -cultures pending #PVD -bilateral pedal pulses barely appreciable -duplex LLE c/w severe stenosis -consutled CT surgery #lower extremity neuropathic pain -burning and tingling in nature -may be due to ALS (30% of patients have tingling paresthesias) -increased gabapentin to 300mg PO tid DNAR
[2019-06-03] MEDS: Sodium Chloride 0.9% 1,000 ML IV SCH ×2 (05:49→15:19)
[2019-06-03 07:18] LABS: Anion Gap 13 mmol/L (10-20); BUN (Urea Nitrogen) 11 mg/dL (8.4-25.7); Calc. Creatinine Clearance 69 mL/min (70-130); Carbon Dioxide 16 mmol/L (23-31); Chloride 107 mmol/L (98-107); Estimated GFR-MDRD 79; Glucose 84 mg/dL (80-115); Magnesium 1.3 mg/dL (1.6-2.6); Potassium 4.1 mmol/L (3.5-5.1); Sodium 132 mmol/L (136-145)
[2019-06-03] MEDS: Nicotine 21 MG PATCH TD SCH (08:33)
[2019-06-03] MEDS: Potassium Chloride 20 MEQ TAB PO SCH (08:33)
[2019-06-03] MEDS: Aspirin Chewable 81 MG TAB PO SCH (08:33)
[2019-06-03] MEDS: Gabapentin 300 MG CAP PO SCH ×2 (08:34→21:10)
[2019-06-03] MEDS: Carvedilol 6.25 MG TAB PO SCH ×2 (08:34→18:08)
[2019-06-03] MEDS: Bupropion 150 MG XL TAB PO SCH (08:34)
[2019-06-03] MEDS: HYDROcodone/Acetaminophen 10/325 mg Tablet PO PRN ×2 (08:34→21:11)
[2019-06-03] MEDS: Multivit, Therapeutic 1 TAB PO SCH (08:34)
[2019-06-03] MEDS: Magnesium Oxide 400 MG TAB PO SCH ×2 (08:34→21:10)
[2019-06-03] MEDS: Digoxin 0.125 MG TAB PO SCH (08:35)
[2019-06-03] MEDS: Enoxaparin Sodium 30 MG/0.3 ML SYRINGE SC SCH (08:39)
[2019-06-03] MEDS: Piperacillin/Tazobactam 4.5 GM in Sodium Chloride 0.9% 100 ML IVPB SCH ×3 (08:53→21:11)
--- NOTE | 2019-06-03 14:47 | CON ---
DATE OF CONSULTATION: 06/03/2019 HISTORY OF PRESENT ILLNESS: Mr. Evans was admitted on the with left lateral foot ulceration and injury. He has ALS and has apparently injured his lateral left foot on his wheelchair. Now has painful draining wound. He has undergone ultrasound evaluation of his arterial tree, which shows mid SFA and distal monophasic signals with tardus parvus waveforms. He has no palpable pulses in his either foot. I have been asked to see him for further vascular evaluation. PAST MEDICAL HISTORY: 1. ALS. 2. Peripheral vascular disease. 3. History of aortic valve replacement with aortic and mitral valve endocarditis in 2017, status post long-term antibiotic treatment and recovery. 4. Atrial fibrillation. 5. Hypertension. PHYSICAL EXAMINATION: GENERAL: The patient is awake, alert, and oriented. VITAL SIGNS: His height is 6 feet, weight is 140 pounds. Temperature is 97.4, pulse is 81 and regular, and blood pressure is 111/63. LUNGS: Clear bilaterally. HEART: Rhythm is regular. CHEST: Healed nicely. ABDOMEN: Soft and nontender. EXTREMITIES: No edema. His left foot has a dressing on the lateral portion. VASCULAR: As above. ASSESSMENT AND PLAN: Left foot ulceration and injury with pain and nonhealing. We will make plans to do angiograms and potential intervention on his left superficial femoral artery tomorrow. We will treat him for his iodine allergy. Job ID: [id number]
[2019-06-03] MEDS: Famotidine 20 MG TAB PO SCH (21:10)
--- NOTE | 2019-06-03 22:46 | PDOC.HOSPP ---
- Subjective Encounter Date: 06/03/19 Encounter Time: 10:40 Subjective: no overnight events. This morning, peripheral paresthesias improved. Has no other complaints. - Objective Vital Signs & Weight: Vital Signs (12 hours) Temp Pulse Resp BP Pulse Ox 06/03/19 20:00 96 06/03/19 15:59 97.2 F L 84 16 117/79 91 L 06/03/19 11:30 97.4 F L 81 16 111/63 98 Weight Admit Weight 140 lb Weight 140 lb I&O: 06/02/19 06/03/19 06/04/19 06:59 06:59 06:59 Intake Total 2560 2540 2540 Output Total 200 Balance 2360 2540 2540 Result Diagrams: 06/02/19 05:03 06/03/19 06:54 Hospitalist ROS - Review of Systems Constitutional: denies: fever, chills, sweats, weakness, malaise, other Respiratory: denies: cough, dry, shortness of breath, hemoptysis, SOB with excertion, pleuritic pain, sputum, wheezing, other Cardiovascular: denies: chest pain, palpitations, orthopnea, paroxysmal noc. dyspnea, edema, light headedness, other Gastrointestinal: denies: nausea, vomiting, abdominal pain, diarrhea, constipation, melena, hematochezia, other Genitourinary: denies: dysuria, frequency, incontinence, hematuria, retention, other - Medication Medications: Active Medications Generic Name Dose Route Start Last Admin Trade Name Freq PRN Reason Stop Dose Admin Hydrocodone Bitart/Acetaminophen 1 tab 06/01/19 00:58 06/03/19 21:11 [place] 10/325 PO 1 tab Q6H PRN Administration Moderate Pain (4-6) Aspirin 81 mg 06/01/19 09:00 06/03/19 08:33 Aspirin Chewable PO 81 mg DAILY NOLA Administration Bupropion HCl 150 mg 06/01/19 09:00 06/03/19 08:34 Wellbutrin Xl PO 150 mg DAILY NOLA Administration Carvedilol 12.5 mg 06/01/19 08:00 06/03/19 18:08 Coreg PO 12.5 mg BID-WM NOLA Administration Digoxin 0.125 mg 06/01/19 09:00 06/03/19 08:35 Lanoxin PO 0.125 mg DAILY NOLA Administration Enoxaparin Sodium 30 mg 06/01/19 09:00 06/03/19 08:39 Lovenox SC Not Given 0900 [facility] Famotidine 20 mg 06/03/19 21:00 06/03/19 21:10 Pepcid PO 06/04/19 09:01 20 mg BID NOLA Administration Gabapentin 300 mg 06/02/19 21:00 06/03/19 21:10 Neurontin PO 300 mg BID NOLA Administration HCTZ/Losartan Potassium 1 tab 06/01/19 09:00 06/03/19 08:34 Hyzaar 50/12.5 PO 1 tab DAILY NOLA Administration Sodium Chloride 1,000 mls @ 100 mls/hr 06/01/19 12:30 06/03/19 15:19 Normal Saline 0.9% IV 1,000 mls .Q10H NOLA Administration Piperacillin Sod/Tazobactam 100 mls @ 100 mls/hr 06/03/19 09:00 06/03/19 21: 11 Sod 4.5 gm/ Sodium Chloride IVPB 100 mls 0300,0900,1500,2100 NOLA Administration Magnesium Oxide 400 mg 06/02/19 21:00 06/03/19 21:10 Magnesium Oxide PO 400 mg BID NOLA Administration Multivitamins 1 tab 06/01/19 09:00 06/03/19 08:34 Theragran PO 1 tab DAILY NOLA Administration Nicotine 21 mg 06/02/19 09:00 06/03/19 08:33 Nicoderm Patch TD 21 mg DAILY NOLA Administration Potassium Chloride 40 meq 06/02/19 08:00 06/03/19 08:33 K-Dur PO 40 meq QAM-WM NOLA Administration - Exam General Appearance: NAD, awake alert Neck: no JVD Heart: RRR, no murmur, no gallops, no rubs Respiratory: CTAB, no wheezes, no rales, no ronchi Gastrointestinal: soft, non-tender, non-distended, normal bowel sounds Extremities - other findings: clean dressing over left foot lateral ulcer Psychiatric: normal affect, normal behavior, A&O x 3 Hosp A/P - Plan #chronic left lateral foot ulcer, infected -wound culture growing enteroccous and pansusceptible pseudomonas -continue vanc, change ceftriaxone to zosyn per ID; appreciated recs #PVD -bilateral pedal pulses barely appreciable -duplex LLE c/w severe stenosis -appreciated CT surgery recs -pending angio with possible intervention #lower extremity neuropathic pain (improved) -burning and tingling in nature -may be due to ALS (30% of patients have tingling paresthesias) -continue gabapentin to 300mg PO tid DNAR
[2019-06-04] MEDS: Piperacillin/Tazobactam 4.5 GM in Sodium Chloride 0.9% 100 ML IVPB SCH ×4 (02:09→20:55)
[2019-06-04] MEDS: HYDROcodone/Acetaminophen 10/325 mg Tablet PO PRN (02:11)
[2019-06-04] MEDS: Sodium Chloride 0.9% 1,000 ML IV SCH ×3 (02:15→21:02)
[2019-06-04] MEDS ORDERED: diphenhydrAMINE 50 MG/ML VIAL IVP SCH (07:00)
[2019-06-04] MEDS ORDERED: Hydrocortisone Sod Succ/PF 100 mg/2 ml Vial IVP SCH ×2 (07:00→10:00)
[2019-06-04 07:33] LABS: Anion Gap 11 mmol/L (10-20); BUN (Urea Nitrogen) 13 mg/dL (8.4-25.7); Calc. Creatinine Clearance 60 mL/min (70-130); Calcium 7.9 mg/dL (7.8-10.44); Carbon Dioxide 18 mmol/L (23-31); Chloride 109 mmol/L (98-107); Estimated GFR-MDRD 66; Glucose 86 mg/dL (80-115); Magnesium 1.4 mg/dL (1.6-2.6); Sodium 134 mmol/L (136-145)
[2019-06-04] MEDS: Potassium Chloride 20 MEQ TAB PO SCH (07:53)
[2019-06-04] MEDS: Magnesium Oxide 400 MG TAB PO SCH ×2 (07:54→20:54)
[2019-06-04 08:30] LABS: Vancomycin, Random 21.4 ug/mL (See Comment)
[2019-06-04] MEDS ORDERED: Iopamidol 370 76% 50 ML VIAL FS ONE (08:43)
[2019-06-04] MEDS: Vancomycin 1.5 GRAM/300 ML BAG 1.5 GM in Premix Bag 1 BAG IVPB SCH ×2 (09:19→15:44)
[2019-06-04] MEDS: Carvedilol 6.25 MG TAB PO SCH ×2 (09:23→15:46)
[2019-06-04] MEDS: Famotidine 20 MG TAB PO SCH (10:22)
[2019-06-04] MEDS ORDERED: Lidocaine 1% (PF) 30 ML VIAL ONE (10:57)
[2019-06-04] MEDS ORDERED: Protamine Sulfate 50 MG/5 ML VIAL ONE (12:13)
[2019-06-04] MEDS ORDERED: Heparin 10,000 UNITS/1 ML VIAL ONE (12:13)
--- NOTE | 2019-06-04 13:23 | OP ---
DATE OF PROCEDURE: 06/04/2019 PREOPERATIVE DIAGNOSIS: Peripheral vascular disease with nonhealing wound, left foot. POSTOPERATIVE DIAGNOSIS: Peripheral vascular disease with nonhealing wound, left foot. PROCEDURES PERFORMED: 1. Abdominal aortogram. 2. Left common femoral artery angiogram with left leg runoff. 3. Left superficial femoral artery angiogram. 4. Percutaneous transluminal angioplasty of the left superficial femoral artery with a 4 x 8 Lutonix drug-eluting balloon inflated for 3 minutes at 10 mmHg pressure. TOTAL CONTRAST: 32 mL. TOTAL FLUORO TIME: 4.3 minutes. ANESTHESIA: 1% lidocaine for local. DESCRIPTION OF PROCEDURE: After consent was obtained, the patient was brought to the slab lifting engineer, placed in supine position on slab lifting engineer table. Appropriate central line and monitors were placed. IV sedation was begun. Ultrasound interrogation of the arterial tree in the groin was obtained and using ultrasound guidance, the right groin was anesthetized with 1% lidocaine. Using ultrasound guidance, the right common femoral artery was accessed with a micropuncture wire and catheter. This was exchanged for a 5-Citizen Of [place] sheath. A Contra catheter was passed in the abdominal aorta. Aortogram was performed showing no significant aortic or iliac disease bilaterally. A Contra catheter was guided over the aortic bifurcation and positioned with its tip in the common femoral artery. Digital angiography was used to michael contrast from groin to foot. The superficial femoral and profunda femoris arteries were widely patent. The superficial femoral artery at the level of the Jesu's canal became atretic and reconstituted approximately 3 to 4 cm distally. Popliteal and trifurcation vessels were patent into the foot. The patient was given 5000 units of heparin. A Magic Torque guidewire was used to cross the lesion in the SFA. Sheath was exchanged for a 5-Citizen Of [place] Destination sheath. A 4 x 4 Runnells balloon was then positioned across the lesion. This was inflated to 10 mmHg with good wasting and resolution. Followup angiogram showed a good result with this balloon. The Runnells balloon was removed and a 4 x 8 Lutonix drug-eluting balloon was then positioned over the lesion. This was inflated for 3 minutes at 10 mmHg. Followup angiogram showed an excellent result with good runoff. The sheath was withdrawn back into the abdominal aorta. The Magic Torque guidewire was removed and replaced with a 3X System[employer] guidewire. Sheath was removed and ProGlide used to close the right groin. Good hemostasis was obtained. The patient was transferred to the recovery area for 2 hours and then back to the floor in good condition. Job ID: [id number]
[2019-06-04] MEDS: Gabapentin 300 MG CAP PO SCH ×3 (13:31→20:54)
[2019-06-04] MEDS: Aspirin Chewable 81 MG TAB PO SCH (13:31)
[2019-06-04] MEDS: Multivit, Therapeutic 1 TAB PO SCH (13:31)
[2019-06-04] MEDS: Digoxin 0.125 MG TAB PO SCH (15:45)
[2019-06-04] MEDS: Nicotine 21 MG PATCH TD SCH (15:45)
[2019-06-04] MEDS: Bupropion 150 MG XL TAB PO SCH (15:45)
--- NOTE | 2019-06-04 22:09 | PDOC.HOSPP ---
- Subjective Encounter Date: 06/04/19 Encounter Time: 10:00 Subjective: no overnight events. This morning feeling well prior to angiogram procedure and has no complaints. - Objective Vital Signs & Weight: Vital Signs (12 hours) Temp Pulse Resp BP Pulse Ox 06/04/19 20:00 97.5 F L 82 16 129/83 97 06/04/19 15:00 97.0 F L 88 20 146/89 H 100 06/04/19 10:50 97.6 F 90 16 118/75 98 Weight Admit Weight 140 lb Weight 140 lb I&O: 06/03/19 06/04/19 06/05/19 06:59 06:59 06:59 Intake Total 2540 2540 1500 Balance 2540 2540 1500 Result Diagrams: 06/02/19 05:03 06/04/19 06:39 Hospitalist ROS - Review of Systems Constitutional: denies: fever, chills, sweats, weakness, malaise, other Respiratory: denies: cough, dry, shortness of breath, hemoptysis, SOB with excertion, pleuritic pain, sputum, wheezing, other Cardiovascular: denies: chest pain, palpitations, orthopnea, paroxysmal noc. dyspnea, edema, light headedness, other Gastrointestinal: denies: nausea, vomiting, abdominal pain, diarrhea, constipation, melena, hematochezia, other Genitourinary: denies: dysuria, frequency, incontinence, hematuria, retention, other - Medication Medications: Active Medications Generic Name Dose Route Start Last Admin Trade Name Freq PRN Reason Stop Dose Admin Hydrocodone Bitart/Acetaminophen 1 tab 06/01/19 00:58 06/04/19 02:11 [place] 10/325 PO 1 tab Q6H PRN Administration Moderate Pain (4-6) Aspirin 81 mg 06/01/19 09:00 06/04/19 13:31 Aspirin Chewable PO Not Given DAILY [facility] Bupropion HCl 150 mg 06/01/19 09:00 06/04/19 15:45 Wellbutrin Xl PO 150 mg DAILY [place] Administration Carvedilol 12.5 mg 06/01/19 08:00 06/04/19 15:46 Coreg PO 12.5 mg BID-WM [place] Administration Digoxin 0.125 mg 06/01/19 09:00 06/04/19 15:45 Lanoxin PO 0.125 mg DAILY [place] Administration Enoxaparin Sodium 30 mg 06/01/19 09:00 06/03/19 08:39 Lovenox SC Not Given 0900 [facility] Gabapentin 300 mg 06/02/19 21:00 06/04/19 20:54 Neurontin PO 300 mg BID [place] Administration HCTZ/Losartan Potassium 1 tab 06/01/19 09:00 06/04/19 15:45 Hyzaar 50/12.5 PO 1 tab DAILY [place] Administration Sodium Chloride 1,000 mls @ 100 mls/hr 06/01/19 12:30 06/04/19 21:02 Normal Saline 0.9% IV Not Given .Q10H [place] Piperacillin Sod/Tazobactam 100 mls @ 100 mls/hr 06/03/19 09:00 06/04/19 20: 55 Sod 4.5 gm/ Sodium Chloride IVPB 100 mls 0300,0900,1500,2100 [place] Administration Vancomycin HCl 1.5 gm/ Device 300 mls @ 200 mls/hr 06/04/19 14:00 06/04/19 15 :44 IVPB 300 mls 1400 [place] Administration Magnesium Oxide 400 mg 06/02/19 21:00 06/04/19 20:54 Magnesium Oxide PO 400 mg BID [place] Administration Multivitamins 1 tab 06/01/19 09:00 06/04/19 13:31 Theragran PO Not Given DAILY [facility] Nicotine 21 mg 06/02/19 09:00 06/04/19 15:45 Nicoderm Patch TD 21 mg DAILY [place] Administration Potassium Chloride 40 meq 06/02/19 08:00 06/04/19 07:53 K-Dur PO Not Given QAM-WM [facility] - Exam General Appearance: NAD, awake alert Heart: RRR, no murmur, no gallops, no rubs, normal peripheral pulses Respiratory: CTAB, no wheezes, no rales, no ronchi, normal chest expansion, no tachypnea, normal percussion Gastrointestinal: soft, non-tender, non-distended, normal bowel sounds, no palpable masses, no hepatomegaly, no splenomegaly, no bruit Extremities - other findings: unchanged Psychiatric: normal affect, normal behavior, A&O x 3 Hosp A/P - Plan #chronic left lateral foot ulcer, infected -wound culture growing enteroccous and pansusceptible pseudomonas -continue vanc, change ceftriaxone to zosyn per ID; appreciated recs -will require PICC placement #PVD -bilateral pedal pulses barely appreciable -duplex LLE c/w severe stenosis -appreciated CT surgery recs; pending angiogram #lower extremity neuropathic pain (improved) -burning and tingling in nature -may be due to ALS (30% of patients have tingling paresthesias) -continue gabapentin to 300mg PO tid DNAR
[2019-06-05 02:43] LABS: #Basophils 0.1 thou/uL (0.0-0.2); #Eosinphils 0.5 thou/uL (0.0-0.7); #Lymphocytes 1.5 thou/uL (1.20-3.40); #Monocytes 0.7 thou/uL (0.11-0.59); #Neutrophils 5.6 thou/uL (1.40-6.50); %Basophils 1.2 % (0.0-1.0); %Eosinophils 5.4 % (0.0-10.0); %Lymphocytes 18.2 % (21.0-51.0); %Monocytes 8.7 % (0.0-10.0); %Neutrophils 66.4 % (42.0-75.0); Mean Corpuscular HGB CONC 34.1 g/dL (32.0-36.0); Mean Corpuscular Hemoglobin 35.2 pg (27.0-31.0); Mean Platelet Volume 6.2 fL (7.4-10.4); Platelet Count 317 thou/uL (130-400); RBC Distribution Width 12.7 % (11.5-14.5); White Blood Cell (WBC) Count 8.4 thou/uL (4.8-10.8)
[2019-06-05 03:01] LABS: Anion Gap 14 mmol/L (10-20); BUN (Urea Nitrogen) 11 mg/dL (8.4-25.7); Calc. Creatinine Clearance 65 mL/min (70-130); Calcium 8.6 mg/dL (7.8-10.44); Carbon Dioxide 17 mmol/L (23-31); Chloride 109 mmol/L (98-107); Estimated GFR-MDRD 74; Glucose 82 mg/dL (80-115); Potassium 4.1 mmol/L (3.5-5.1); Sodium 136 mmol/L (136-145)
[2019-06-05] MEDS: Piperacillin/Tazobactam 4.5 GM in Sodium Chloride 0.9% 100 ML IVPB SCH ×2 (03:19→08:38)
[2019-06-05] MEDS: Sodium Chloride 0.9% 1,000 ML IV SCH ×2 (03:21→21:06)
--- NOTE | 2019-06-05 07:44 | RAD ---
EXAM: Single view of the chest HISTORY: Shortness of breath COMPARISON: 10/24/2018 FINDINGS: Single view of the chest shows a normal sized cardiomediastinal silhouette. There is blunt ing of the left posterior pigtail which is stable and may represent scarring or a small left pleural effusion. Biapical pleural thickening is seen. There are bilateral remote healed rib fracture s. IMPRESSION: Small left pleural effusion versus left lower lobe scarring.
[2019-06-05] MEDS: Potassium Chloride 20 MEQ TAB PO SCH (08:36)
[2019-06-05] MEDS: Digoxin 0.125 MG TAB PO SCH (08:36)
[2019-06-05] MEDS: Carvedilol 6.25 MG TAB PO SCH ×2 (08:36→18:02)
[2019-06-05] MEDS: Clopidogrel Bisulfate 75 MG TAB PO SCH (08:37)
[2019-06-05] MEDS: Gabapentin 300 MG CAP PO SCH ×2 (08:37→21:06)
[2019-06-05] MEDS: Multivit, Therapeutic 1 TAB PO SCH (08:37)
[2019-06-05] MEDS: Enoxaparin Sodium 30 MG/0.3 ML SYRINGE SC SCH (08:37)
[2019-06-05] MEDS: Magnesium Oxide 400 MG TAB PO SCH ×2 (08:37→21:06)
[2019-06-05] MEDS: Bupropion 150 MG XL TAB PO SCH (08:37)
[2019-06-05] MEDS: Aspirin Chewable 81 MG TAB PO SCH (08:37)
[2019-06-05] MEDS: Nicotine 21 MG PATCH TD SCH (08:38)
[2019-06-05] MEDS: Vancomycin 1.5 GRAM/300 ML BAG 1.5 GM in Premix Bag 1 BAG IVPB SCH (15:14)
--- NOTE | 2019-06-05 17:35 | PRG ---
DATE OF SERVICE: 06/05/2019 SUBJECTIVE: Mr. Evans is having diarrhea after each dose of Zosyn. He does not want to let the nurse give him the Zosyn any longer. He otherwise is feeling okay. Dr. Abdi Dominique carried out a procedure of revascularization, which consisted of abdominal aortogram with left common femoral artery angiogram and left leg runoff, and he had a percutaneous transluminal angioplasty of left superficial femoral artery and the patient felt improvement in the sensation in the left foot. OBJECTIVE: VITAL SIGNS: His vital signs showed normal temperature. All other vital signs are normal. GENERAL: Awake, alert, and oriented. LUNGS: Clear. HEART: S1 and S2 regular rate. ABDOMEN: Soft. EXTREMITIES: Left foot with [id number] erythema around the ulcerated area. LABORATORY DATA: His white cell count is 8.4, hemoglobin is 12, platelets are 317. Sodium 136, creatinine 1.01. ASSESSMENT AND PLAN: He has Enterococcus faecalis and Pseudomonas aeruginosa, this could represent a surface colonization rather than pathogens involved in the deep wound. He is currently receiving vancomycin, and the patient is refusing the Zosyn, so we will switch his cefepime to cover Pseudomonas and add Flagyl. We will treat him for few weeks and then consider switch him to oral combination of Cipro and Augmentin to complete the treatment probably for another 3 to 4 weeks. Job ID: [id number] [facility]
--- NOTE | 2019-06-05 20:36 | PDOC.HOSPP ---
- Subjective Encounter Date: 06/05/19 Encounter Time: 14:00 Subjective: ovenrihgt, underwent CTA with angioplasty, tolerated procedure well. This afternoon, sitting comfortably in bed and complains of diarrea, confirmed with nurse multiple bowel movements. otherwise no complaints. - Objective Vital Signs & Weight: Vital Signs (12 hours) Temp Pulse Resp BP BP Pulse Ox 06/05/19 18:02 132/82 06/05/19 15:47 98.2 F 77 16 121/84 99 06/05/19 11:11 98.8 F 90 18 115/79 114 H Weight Admit Weight 140 lb Weight 140 lb I&O: 06/04/19 06/05/19 06/06/19 06:59 06:59 06:59 Intake Total 2540 2550 Balance 2540 2550 Result Diagrams: 06/05/19 02:38 06/05/19 02:38 Hospitalist ROS - Review of Systems Constitutional: denies: fever, chills, sweats, weakness, malaise, other Respiratory: denies: cough, dry, shortness of breath, hemoptysis, SOB with excertion, pleuritic pain, sputum, wheezing, other Cardiovascular: denies: chest pain, palpitations, orthopnea, paroxysmal noc. dyspnea, edema, light headedness, other Gastrointestinal: denies: nausea, vomiting, abdominal pain, diarrhea, constipation, melena, hematochezia, other Genitourinary: denies: dysuria, frequency, incontinence, hematuria, retention, other - Medication Medications: Active Medications Generic Name Dose Route Start Last Admin Trade Name Freq PRN Reason Stop Dose Admin Hydrocodone Bitart/Acetaminophen 1 tab 06/01/19 00:58 06/04/19 02:11 [place] 10/325 PO 1 tab Q6H PRN Administration Moderate Pain (4-6) Albuterol/Ipratropium 3 ml 06/05/19 01:00 06/05/19 07:39 Duoneb NEB 3 ml Q6H PRN Administration SOB &/or Wheezing Aspirin 81 mg 06/01/19 09:00 06/05/19 08:37 Aspirin Chewable PO 81 mg DAILY [place] Administration Bupropion HCl 150 mg 06/01/19 09:00 06/05/19 08:37 Wellbutrin Xl PO 150 mg DAILY [place] Administration Carvedilol 12.5 mg 06/01/19 08:00 06/05/19 18:02 Coreg PO 12.5 mg BID-WM [place] Administration Clopidogrel Bisulfate 75 mg 06/05/19 09:00 06/05/19 08:37 Plavix PO 75 mg DAILY [place] Administration Digoxin 0.125 mg 06/01/19 09:00 06/05/19 08:36 Lanoxin PO 0.125 mg DAILY [place] Administration Gabapentin 300 mg 06/02/19 21:00 06/05/19 08:37 Neurontin PO 300 mg BID [place] Administration HCTZ/Losartan Potassium 1 tab 06/01/19 09:00 06/05/19 08:35 Hyzaar 50/12.5 PO 1 tab DAILY [place] Administration Vancomycin HCl 1.5 gm/ Device 300 mls @ 200 mls/hr 06/04/19 14:00 06/05/19 15 :14 IVPB 300 mls 1400 [place] Administration Sodium Chloride 1,000 mls @ 50 mls/hr 06/05/19 00:56 06/05/19 03:21 Normal Saline 0.9% IV 1,000 mls .Q20H [place] Administration Magnesium Oxide 400 mg 06/02/19 21:00 06/05/19 08:37 Magnesium Oxide PO 400 mg BID [place] Administration Multivitamins 1 tab 06/01/19 09:00 06/05/19 08:37 Theragran PO 1 tab DAILY [place] Administration Nicotine 21 mg 06/02/19 09:00 06/05/19 08:38 Nicoderm Patch TD 21 mg DAILY [place] Administration Potassium Chloride 40 meq 06/02/19 08:00 06/05/19 08:36 K-Dur PO 40 meq QAM-WM [place] Administration - Exam General Appearance: NAD, awake alert Heart: RRR, no murmur, no gallops, no rubs, normal peripheral pulses Respiratory: CTAB, no wheezes, no rales, no ronchi, normal chest expansion, no tachypnea, normal percussion Gastrointestinal: soft, non-tender, non-distended, normal bowel sounds, no palpable masses, no hepatomegaly, no splenomegaly, no bruit Extremities: no edema Extremities - other findings: clean dressings overlying both feet Psychiatric: normal affect, A&O x 3. negative: normal behavior (has been hypomanic since admission) Hosp A/P - Plan #chronic left lateral foot ulcer and osteomyelitis -BCx negative; wound culture growing enteroccous and pansusceptible pseudomonas ; may not represent bone pathogens; will obtain bone biopsy, considering only few days not likely to affect yield especially in context of poor circulation -continue vanc; patient refusing zosyn though explained it is unlikely reason for diarrhea -start cefepime; appreciated ID recs -will require PICC placement, ABx for weeks per ID #diarrhea -c. diff negative -will follow #PVD -bilateral pedal pulses barely appreciable -duplex LLE c/w severe stenosis -appreciated CT surgery recs; pending angiogram #lower extremity neuropathic pain (improved) -burning and tingling in nature -may be due to ALS (30% of patients have tingling paresthesias) -continue gabapentin to 300mg PO tid DNAR
[2019-06-05] MEDS: HYDROcodone/Acetaminophen 10/325 mg Tablet PO PRN (21:05)
[2019-06-06] MEDS: HYDROcodone/Acetaminophen 10/325 mg Tablet PO PRN (03:20)
[2019-06-06 08:16] LABS: PTT 47.9 SEC (22.9-36.1); Prothrombin Time 13.6 SEC (12.0-14.7)
[2019-06-06] MEDS: Bupropion 150 MG XL TAB PO SCH (08:56)
[2019-06-06] MEDS: Gabapentin 300 MG CAP PO SCH (08:57)
[2019-06-06] MEDS: Digoxin 0.125 MG TAB PO SCH (08:57)
[2019-06-06] MEDS: Carvedilol 6.25 MG TAB PO SCH ×2 (08:57→17:00)
[2019-06-06] MEDS ORDERED: Cefepime 1 GM in Sodium Chloride 0.9% 100 ML IVPB SCH (11:00)
[2019-06-06 11:34] VITALS: TEMP 97.1
[2019-06-06 13:52] LABS: Vancomycin, Trough 24.1 ug/mL
--- NOTE | 2019-06-06 14:48 | SPC ---
Exam: Left upper extremity PICC line placement with ultrasound guidance HISTORY: Osteomyelitis. Exposure: 0.2 minutes, 757 mGy*cm2 FINDINGS: Successful left upper extremity PICC line placement with ultrasound guidance. 45 cm trim length. Sing le-lumen catheter does flush and aspirate without difficulty TECHNIQUE: Consent obtained to perform a left upper tree PICC line with ultrasound guidance. Left arm was prepped and draped in a sterile fashion. 1% lidocaine, buffered with sodium bicarbonate was used for local anesthesia. Under ultrasound guidance, micropuncture needle was used to access the bra chial vein. A 0.018 guidewire was advanced through the needle to the level of the right atrium. Wire was advanced into the inferior vena cava to document venous access. Wire was subsequently pulle d back to the SVC/right atrial junction. Tract was dilated. A single-lumen 5 [place] catheter was advanced over the wire. Wire was removed. Trim length is 45 cm. Catheter does flush and aspirate with out any difficulty IMPRESSION: Successful left upper tree PICC line placement with ultrasound guidance Transcribed Date/Time: 06/06/2019 3:05 PM
[2019-06-06] MEDS: Potassium Chloride 20 MEQ TAB PO SCH (16:50)
[2019-06-06] MEDS: Aspirin Chewable 81 MG TAB PO SCH (16:50)
[2019-06-06] MEDS: Clopidogrel Bisulfate 75 MG TAB PO SCH (16:50)
[2019-06-06] MEDS: Nicotine 21 MG PATCH TD SCH (16:51)
[2019-06-06] MEDS: Magnesium Oxide 400 MG TAB PO SCH (16:51)
[2019-06-06] MEDS: Vancomycin 1.5 GRAM/300 ML BAG 1.5 GM in Premix Bag 1 BAG IVPB SCH (16:51)
[2019-06-06] MEDS: Multivit, Therapeutic 1 TAB PO SCH (16:51)
[2019-06-06 17:01] VITALS: BP 132/82
[2019-06-07] MEDS ORDERED: Vancomycin HCl 750 MG in Sodium Chloride 0.9% 250 ML 250 ML IVPB SCH (14:00)
--- NOTE | 2019-06-07 23:52 | DIS ---
DATE OF ADMISSION: 05/31/2019 DATE OF DISCHARGE: 06/06/2019 HOSPITAL COURSE: Mr. Evans is a 64-year-old male with a medical history of ALS, MRSA endocarditis in 2017, chronic atrial fibrillation (poor anticoagulation candidate per Cardiology), and urinary retention, who presented for a draining left foot wound and reduced pulses. The patient was diagnosed with an infected ulcer and osteomyelitis as well as peripheral vascular disease. 1. Infected ulcer with underlying osteomyelitis. a. The patient was discharged on vancomycin and cefepime for a duration of four weeks. b. The patient was scheduled to follow up with Infectious Disease. c. Discharged to another hospital for continued care. 2. Peripheral vascular disease. a. The patient had peripheral pulses on presentation. b. The patient had angiography with valvuloplasty of the left superficial femoral artery. c. The patient tolerated the procedure well and will be followed with Cardiovascular Surgery as an outpatient. d. On the day of discharge, the patient was hemodynamically stable and had no complaints. PHYSICAL EXAMINATION: VITAL SIGNS: Unremarkable. GENERAL: No apparent distress. Alert and oriented x3. HEART: Regular rate and rhythm. No murmur. No gallops. No rubs. Normal peripheral pulses. RESPIRATORY: Clear to auscultation bilaterally. No wheezes, no rales, no rhonchi. Normal chest expansion. GI: Soft, nontender, nondistended. Normal bowel sounds. EXTREMITIES: No edema. Clean dressing overlying both feet. PSYCHIATRIC: Normal affect. Alert and oriented x3. The patient's code status in the hospital was DNAR. Job ID: [id number]
== END 2019-06-06 18:30 | disposition critical access hospital (66) | DRG 252 ==
LOC: ERS 16:29 → SURG B 17:37
PROVIDERS: ADMIT Internal Medicine; ATTEND Internal Medicine
PROC: 02HV33Z Insertion of Infusion Device into Superior Vena Cava, Percutaneous Approach (ICD-10-PCS; principal; 2019-06-04)
PROC: 047L341 Dilation of Left Femoral Artery with Drug-eluting Intraluminal Device, using Drug-Coated Balloon, Percutaneous Approach (ICD-10-PCS; 2019-06-04)
PROC: B548ZZA Ultrasonography of Superior Vena Cava, Guidance (ICD-10-PCS; 2019-06-04)
DX: I73.9 Peripheral vascular disease, unspecified (principal); E43 Unspecified severe protein-calorie malnutrition; M86.172 Other acute osteomyelitis, left ankle and foot; I48.20 Chronic atrial fibrillation, unspecified; G12.21 Amyotrophic lateral sclerosis; Z68.1 Body mass index [BMI] 19.9 or less, adult; N18.3 Chronic kidney disease, stage 3 (moderate); I12.9 Hypertensive chronic kidney disease with stage 1 through stage 4 chronic kidney disease, or unspecified chronic kidney disease; F17.210 Nicotine dependence, cigarettes, uncomplicated; F10.20 Alcohol dependence, uncomplicated; Z88.8 Allergy status to other drugs, medicaments and biological substances; Z79.01 Long term (current) use of anticoagulants
CPT/HCPCS: 36415; 36569; 37224; 71045; 76942; 80048; 80202; 83630; 83735; 83880; 85025; 85347; 85610; 85652; 85730; 86140; 87040; 87045; 87046; 87070; 87077; 87081; 87186; 87205; 87324; 87328; 87329; 87427; 87449; 93923; 99284; C1725; C1751; C1760; C1769; J0692; J0696; J1644; J1650; J2001; J2543; J2720; J3490; J7620; Q9967

== ENCOUNTER 2019-07-29 15:03 | Outpatient (CLI) | payer MEDICARE, MEDICAID ==
--- NOTE | 2019-07-29 16:00 | RAD ---
Left foot 3 views HISTORY: Wound. COMPARISON: 06/23/2019. FINDINGS: Lisfranc joint alignment is anatomic. Plantar arch is maintained. Small focus of dystrophic calcification plantar surface of the foot is stable. Mild osteoarthritic changes throughout the foot are again demonstrated. Focal skin defect at the lateral aspect of the fluid at the level of the tarsal base is more conspicu ous than on the prior study. Hazy periosteal reaction has gradually developed at the underlying cortex. No aggressive osseous destruction is apparent. IMPRESSION : Gradual radiographic worsening of the soft tissue ulceration defect at the lateral aspect of the foot . Gradually progressing periosteal and cortical reaction at the lateral base of the fifth metatarsal is suspicious for infectious osseous component.
== END 2019-07-29 15:04 | disposition home or self-care (01) ==
LOC: BICRAD 15:03
PROVIDERS: ATTEND Internal Medicine Infectious Disease
DX: L97.529 Non-pressure chronic ulcer of other part of left foot with unspecified severity (principal)

== ENCOUNTER 2019-12-25 12:30 | Outpatient (CLI) | payer MEDICARE, MEDICAID ==
--- NOTE | 2019-12-25 13:35 | MRI ---
MR of the right shoulder without contrast INDICATION: Right shoulder pain. Fall with right shoulder pain TECHNIQUE: Sagittal T1, axial and coronal PD fat sat, sagittal and coronal T2 fat sat images were obt ained of the right shoulder. COMPARISON: None. FINDINGS: Motion artifact limits image detail. Rotator cuff: There is complete disruption of the supraspinatus and infraspinatus with retractions of the tendon to the level of the glenoid head. There is moderate supraspinatus and mild infraspinatus muscular atrophy. There is a high-grade partial thickness articular surface tear involv ing the subscapularis. There is mild subscapularis muscular atrophy. Glenohumeral joint: There is mild glenohumeral osteoarthrosis. Glenoid labrum: There is near circumferential tear of the glenoid labrum. Biceps tendon and biceps anchor: There is severe tendinosis of the intra-articular biceps tendon with a split tear involving the proximal long head of the biceps tendon. Acromion clavicular joint: There is an os acromiale . There is mild AC joint osteoarthrosis. Subacromial subdeltoid space: There is prominent fluid distention of the subacromial subdeltoid bursa . Axillary region: No lymphadenopathy. Surrounding shoulder musculature: Normal. No evidence of atrophy or strain. IMPRESSION: 1. Massive rotator cuff tear with moderate supraspinatus and mild infraspinatus muscular atrophy. 2. High-grade partial thickness articular surface tear of the subscapularis with mild subscapularis m uscular atrophy. 3. Near circumferential glenoid labral tear. 4. Severe biceps tendinosis with intra-articular biceps split tear. 5. Mild AC joint osteoarthrosis. Os acromiale .
== END 2019-12-25 12:31 | disposition home or self-care (01) ==
LOC: MRI 12:30
PROVIDERS: ATTEND Registered Nurse
DX: M25.511 Pain in right shoulder (principal); M75.101 Unspecified rotator cuff tear or rupture of right shoulder, not specified as traumatic; S43.431A Superior glenoid labrum lesion of right shoulder, initial encounter; M77.8 Other enthesopathies, not elsewhere classified; M19.011 Primary osteoarthritis, right shoulder

== ENCOUNTER 2023-02-14 09:44 | Day surgery (SDC) | payer MEDICARE, MEDICAID ==
[2023-02-14] MEDS ORDERED: Heparin 10,000 UNITS/ 10 ML VIAL ONE (10:18)
[2023-02-14] MEDS ORDERED: Lidocaine 1% (PF) 30 ML VIAL ONE (10:19)
== END 2023-02-14 11:01 | disposition home or self-care (01) ==
LOC: SDC 09:44
PROVIDERS: ATTEND Internal Medicine Cardiovascular Disease
DX: L97.922 Non-pressure chronic ulcer of unspecified part of left lower leg with fat layer exposed (principal); Z91.09 Other allergy status, other than to drugs and biological substances; Z53.09 Procedure and treatment not carried out because of other contraindication
CPT/HCPCS: J1644; J2001

== ENCOUNTER → 2023-02-19 | Day surgery (SDC) | payer MEDICARE, MEDICAID ==
[2023-02-16 12:58] VITALS: BMI 17.6
[~2023-02-19] MED LIST changes: -Heparin 1,000 UNITS/ML VIAL ONE; +Heparin 10,000 UNITS/ 10 ML VIAL ONE; +Hydrocortisone Sod Succ/PF 100 mg/2 ml Vial ONE; +Lidocaine 1% (PF) 30 ML VIAL ONE; +Midazolam HCl 2 mg/2 ml Vial ONE; +Protamine Sulfate 50 MG/5 ML VIAL ONE; +fentaNYL 50 mcg/mL 1 mL Vial ONE
[2023-02-19 12:25] LABS: #Monocytes 0.1 thou/uL (0.11-0.59); #Neutrophils 8.9 thou/uL (1.40-6.50); %Basophils 0.1 % (0.0-1.0); %Lymphocytes 6.2 % (21.0-51.0); %Monocytes 0.7 % (0.0-10.0); %Neutrophils 92.2 % (42.0-75.0); Hematocrit 33.5 % (42.0-52.0); Hemoglobin 11.2 g/dL (14.0-18.0); Mean Corpuscular HGB CONC 33.4 g/dL (32.0-36.0); Mean Corpuscular Hemoglobin 33.5 pg (27.0-31.0); Mean Corpuscular Volume 100.3 fl (78.0-98.0); Mean Platelet Volume 8.3 fL (7.4-10.4); Platelet Count 335 10x3/uL (130-400); RBC Distribution Width 13.7 % (11.5-14.5); Red Blood Cell (RBC) Count 3.34 mill/uL (4.70-6.10); White Blood Cell (WBC) Count 9.7 10x3/uL (4.8-10.8)
[2023-02-19 12:47] LABS: ALT (SGPT) 10 U/L (8-55); AST (SGOT) 13 U/L (5-34); Albumin 3.8 g/dL (3.4-4.8); Alkaline Phosphatase 109 U/L (40-110); Anion Gap 15 mmol/L (10-20); BUN (Urea Nitrogen) 29 mg/dL (8.4-25.7); Bilirubin, Total 0.4 mg/dL (0.2-1.2); Calc. Creatinine Clearance 39 mL/min (70-130); Calcium 8.9 mg/dL (7.8-10.44); Carbon Dioxide 17 mmol/L (23-31); Chloride 108 mmol/L (98-107); Estimated GFR 50; Globulin 3.3 g/dL (2.4-3.5); Glucose 139 mg/dL (80-115); Potassium 5.5 mmol/L (3.5-5.1); Protein, Total 7.1 g/dL (5.8-8.1); Sodium 134 mmol/L (136-145)
== END ==
LOC: CCL 09:45
PROVIDERS: ATTEND Internal Medicine Cardiovascular Disease
PROC: 047N0ZZ Dilation of Left Popliteal Artery, Open Approach (ICD-10-PCS; principal; 2023-02-19)
DX: L97.922 Non-pressure chronic ulcer of unspecified part of left lower leg with fat layer exposed (principal); I48.91 Unspecified atrial fibrillation; F17.200 Nicotine dependence, unspecified, uncomplicated; F10.90 Alcohol use, unspecified, uncomplicated; Z79.01 Long term (current) use of anticoagulants; Z79.899 Other long term (current) drug therapy
CPT/HCPCS: 37224; 75710; 75736; 80053; 85025; 85347 ×2; C1725; C1769 ×5; C1887 ×2; C1894; J1644; J1720; J2001; J2250; J2720; J3010